=== PATIENT | male | born 1955 | race Caucasian/White ===

== ENCOUNTER 2016-06-30 21:34 | Emergency (ER) | payer MEDICARE, MEDICAID ==
[2016-07-01 02:39] LABS: ABSOLUTE EOSINOPHILS # (AUTO) 0.2 10^3/uL (0.0-0.6); ABSOLUTE LYMPHOCYTES (AUTO) 1.9 10^3/uL (0.5-4.7); ABSOLUTE MONOCYTES (AUTO) 0.5 10^3/uL (0.1-1.4); ABSOLUTE NEUT (AUTO) 6.5 10^3/uL (1.7-8.2); BASOPHILS % (AUTO) 0.3 % (0-2); EOSINOPHILS % (AUTO) 1.9 % (0-6); HEMOGLOBIN 13.6 g/dL (13.5-17.0); HGB HCT DIFFERENCE 0.8; LYMPHOCYTES % (AUTO) 20.6 % (13-45); MEAN CORPUSCULAR HEMOGLOBIN 31.1 pg (27.0-33.4); MEAN CORPUSCULAR HGB CONC 34.1 g/dL (32.0-36.0); MEAN CORPUSCULAR VOLUME 91 fl (80-97); RED BLOOD COUNT 4.39 10^6/uL (4.35-5.55); SEGMENTED NEUTROPHILS % (AUTO) 71.2 % (42-78); WHITE BLOOD COUNT 9.1 10^3/uL (4.0-10.5)
[2016-07-01 02:41] LABS: APPEARANCE,URINE CLEAR; BILIRUBIN,URINE NEGATIVE (NEGATIVE); GLUCOSE, URINE NEGATIVE (NEGATIVE); KETONES,URINE TRACE mg/dL (NEGATIVE); LEUKOCYTE ESTERASE,URINE NEGATIVE (NEGATIVE); NITRITE,URINE NEGATIVE (NEGATIVE); PROTEIN,URINE NEGATIVE (NEGATIVE); URINE SPECIFIC GRAVITY 1.013; UROBILINOGEN,URINE NEGATIVE mg/dL (<2.0)
[2016-07-01] MEDS ORDERED: MORPHINE SULFATE 10 MG/ML INJ IV ONE ×2 (02:41→05:31)
[2016-07-01] MEDS ORDERED: NORMAL SALINE 1000 ML 1,000 ML IV ONE (02:41)
[2016-07-01] MEDS ORDERED: ONDANSETRON HCL INJ/PF 4 MG/2 ML SDV IV ONE ×2 (02:41→05:32)
--- NOTE | 2016-07-01 02:43 | ER Document Report ---
ED GI/ - General Chief Complaint: Abdominal Pain Stated Complaint: LOWER ABDOMINAL PAIN Time seen by provider: 02:42 Notes: Patient is a 61-year-old male that comes emergency department with chief complaint of pain in his right lower abdomen that is worsening over the past 2 days, patient states he vomited once yesterday, he had a normal bowel movement earlier today, he denies dysuria, hematuria, flank pain, history of kidney stones. Patient has not had any abdominal surgeries. Patient had a colonoscopy about 5 years ago which just showed polyps which were removed. Past history of COPD, hypertension. TRAVEL OUTSIDE OF THE [place] IN LAST 30 DAYS: No - Related Data Allergies/Adverse Reactions: No Known Allergies Allergy (Verified 04/17/16 15:27) Past Medical History - General Information source: Patient - Social History Smoking Status: Former Smoker Chew tobacco use (# tins/day): No Frequency of alcohol use: None Drug Abuse: None Lives with: Family Family History: Arthritis, CAD, DM, Hyperlipidemia, Hypertension, Malignancy Patient has suicidal ideation: No Patient has homicidal ideation: No - Past Medical History Cardiac Medical History: Reports: Hx Hypercholesterolemia, Hx Hypertension Pulmonary Medical History: Reports: Hx Asthma, Hx COPD Endocrine Medical History: Reports: Hx Diabetes Mellitus Type 2 - ? states told may be borderline need to watch diet Renal/ Medical History: Denies: Hx Peritoneal Dialysis Musculoskeltal Medical History: Reports Hx Arthritis, Reports Hx Musculoskeletal Deformity, Reports Hx Musculoskeletal Trauma Psychiatric Medical History: Reports: Hx Anxiety, Hx Depression Traumatic Medical History: Reports: Hx Fractures Past Surgical History: Reports: Hx Orthopedic Surgery - rt hand and ankle - Immunizations Hx Diphtheria, Pertussis, Tetanus Vaccination: Yes Review of Systems - Review of Systems Constitutional: No symptoms reported EENT: No symptoms reported Cardiovascular: No symptoms reported Respiratory: No symptoms reported Gastrointestinal: See HPI Genitourinary: No symptoms reported Male Genitourinary: No symptoms reported Musculoskeletal: No symptoms reported Skin: No symptoms reported Hematologic/Lymphatic: No symptoms reported Neurological/Psychological: No symptoms reported Physical Exam - Vital signs Vitals: Temp Pulse Resp BP Pulse Ox 98.1 F 85 20 107/74 94 06/30/16 22:18 06/30/16 22:18 06/30/16 22:18 06/30/16 22:18 06/30/16 22:18 Interpretation: Normal - General General appearance: Appears well, Alert In distress: None - HEENT Head: Normocephalic, Atraumatic Eyes: Normal Conjunctiva: Normal Extraocular movements intact: Yes Eyelashes: Normal Pupils: PERRL Nasal: Normal Mouth/Lips: Normal Mucous membranes: Normal Pharynx: Normal Neck: Normal - Respiratory Respiratory status: No respiratory distress Chest status: Nontender Breath sounds: Normal Chest palpation: Normal - Cardiovascular Rhythm: Regular Heart sounds: Normal auscultation Murmur: No - Abdominal Inspection: Normal Distension: No distension Bowel sounds: Normal Tenderness: Tender - There is tenderness in the right lower abdomen, this is over McBurney's point and slightly around McBurney's point in addition, there is no guarding or rebound tenderness, abdomen is soft and benign and otherwise Organomegaly: No organomegaly - Back Back: Normal, Nontender. 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 Discussed with Dr. Dodd previously guidelines. CAT scan does not show any inflammation or acute surgical abnormality, however there is an area in the colon in the right lower abdomen in the patient's location of tenderness at the descending colon which is consistent with a mass concerning for malignancy. I discussed this with patient in detail, patient provided with a copy of his report and CD, referred to gastroenterology, patient states that he will follow-up immediately. Discussed return precautions , patient states understanding and agreement. - Vital Signs Vital signs: Temp Pulse Resp BP Pulse Ox 97.6 F 80 16 133/86 H 98 07/01/16 05:28 07/01/16 05:28 07/01/16 05:28 07/01/16 05:28 07/01/16 05:28 - Laboratory Result Diagrams: 07/01/16 02:25 07/01/16 02:25 Laboratory results interpreted by me: 07/01/16 07/01/16 02:20 02:25 AST 12 L Urine Ketones TRACE H Discharge - Discharge Clinical Impression: Lower abdominal pain Disposition: HOME, SELF-CARE Additional Instructions: Your CAT scan is concerning for a mass in the large intestine which could be cancer. This needs to be further examined with a scope procedure (colonoscopy) . Please call today for close follow-up with gastroenterology (see referrals listed). Take pain medication as prescribed if needed, take a stool softener as directed. Please return to emergency department for any concerning or worsening symptoms including fever, severe pain, etc. Prescriptions: Docusate Sodium [Colace 100 mg Capsule] 100 mg PO DAILY #30 capsule Oxycodone HCl/Acetaminophen [Percocet 5-325 mg Tablet] 1 - 2 tab PO Q4H PRN #20 tablet PRN Reason: Referrals: HAYES DIAZ MD [ACTIVE STAFF] - 07/01/16 AUSTIN VINCENT MD [ACTIVE STAFF] - 07/01/16 ALEX EMERSON MD [Primary Care Provider] - 07/01/16
[2016-07-01 02:56] LABS: ALANINE AMINOTRANSFERASE 22 U/L (21-72); ALBUMIN 3.9 g/dL (3.5-5.0); ALKALINE PHOSPHATASE 65 U/L (38-126); ANION GAP 11 (5-19); ASPARTATE AMINO TRANSFERASE 12 U/L (17-59); BILIRUBIN,TOTAL 0.5 mg/dL (0.2-1.3); BLOOD UREA NITROGEN 7 mg/dL (7-20); CALCIUM 9.4 mg/dL (8.4-10.2); CARBON DIOXIDE 28 mmol/L (22-30); CHLORIDE 102 mmol/L (98-107); CREATININE RESULT 0.81 mg/dL (0.52-1.25); GLUCOSE 103 mg/dL (75-110); LIPASE 70.1 U/L (23-300); POTASSIUM 4.2 mmol/L (3.6-5.0); SODIUM 141.3 mmol/L (137-145); TOTAL PROTEIN 6.3 g/dL (6.3-8.2)
[2016-07-01 05:30] VITALS: BP 133/86
== END 2016-07-01 06:27 | disposition home or self-care (01) ==
LOC: ER 21:34
DX: R10.31 Right lower quadrant pain (principal); R93.5 Abnormal findings on diagnostic imaging of other abdominal regions, including retroperitoneum; R11.10 Vomiting, unspecified; J44.9 Chronic obstructive pulmonary disease, unspecified; I10 Essential (primary) hypertension; J45.909 Unspecified asthma, uncomplicated; Z87.442 Personal history of urinary calculi; Z86.010 Personal history of colon polyps; Z87.891 Personal history of nicotine dependence
CPT/HCPCS: 96376; 99284; 96361; 96374; 96375; 36415; 83690; 85025; 80053; 81001; 74177; J2270; J2405; J7030

== ENCOUNTER 2016-07-04 09:21 | Day surgery (SDC) | payer MEDICARE, MEDICAID ==
[~2016-07-04 09:21] MED LIST: PROPOFOL INJ 200 MG/20 ML VIAL IV ONE
[2016-07-04 11:50] VITALS: BP 143/89
--- NOTE | 2016-07-04 13:24 | Operative Report ---
Operative Report DATE OF SURGERY: 07/04/16 Operative Report: The risks, benefits and alternatives of the procedure including risks of bleeding, perforation requiring surgery are explained to the patient in detail and informed consent is obtained. Patient is placed in a left, lateral decubital position. A timeout is called. Propofol medications administered. An Olympus videoscope was inserted into the patient's rectum. Scope was then gradually advanced all the way to the cecum. The cecum was identified by the usual anatomical landmarks including the cecal valve as well as the appendiceal office. Prep is good. Photo documentations obtained. The scope was then sequentially pulled back via the rest segments of the colon including the ascending colon, hepatic flexure, transverse colon, splenic flexure, descending colon and finally into the rectosigmoid portions of the colon. Retroflexion maneuvers performed. PREOPERATIVE DIAGNOSIS: Abnormal CT scan showing possible lesion in the ascending colon POSTOPERATIVE DIAGNOSIS: Ascending colon ulcerated area and lesion rest suggestive of adenocarcinoma biopsies obtained. Because of its location which is right close to the cecum he'll need surgery with possible right hemicolectomy OPERATION: Colonoscopy with biopsy SURGEON: HAYES DIAZ ANESTHESIA: LMAC TISSUE REMOVED OR ALTERED: Right colon specimens obtained COMPLICATIONS: None. ESTIMATED BLOOD LOSS: none. INTRAOPERATIVE FINDINGS: Ulcerated lesion noted in the area of the ascending colon. No other masses, AVMs, diverticulosis noted PROCEDURE: Patient tolerated the procedure well. No immediate postprocedure complications are noted. Patient is discharged in good condition. Discharge date 07/04/2016. Discharge diet: Regular. Discharge activity: Regular. He will need surgical referral for right hemicolectomy We'll await on biopsies Patient is instructed to call the office or proceed to the emergency room should there be any further problems or questions.
== END 2016-07-04 11:49 | disposition home or self-care (01) ==
LOC: END 09:21
PROVIDERS: ATTEND Internal Medicine Gastroenterology
PROC: 0DBK8ZX Excision of Ascending Colon, Via Natural or Artificial Opening Endoscopic, Diagnostic (ICD-10-PCS; principal; 2016-07-04 12:00)
DX: K52.9 Noninfective gastroenteritis and colitis, unspecified (principal); I10 Essential (primary) hypertension; Z86.010 Personal history of colon polyps
CPT/HCPCS: 45380; 88305 ×2; J2704; 810

== ENCOUNTER 2016-08-03 05:18 | Inpatient (IN) | payer MEDICARE, MEDICAID ==
[2016-07-27 10:46] LABS: HEMATOCRIT 45.1 % (37.9-51.0); HEMOGLOBIN 14.9 g/dL (13.5-17.0); HGB HCT DIFFERENCE -0.4; MEAN CORPUSCULAR HEMOGLOBIN 30.1 pg (27.0-33.4); MEAN CORPUSCULAR HGB CONC 32.9 g/dL (32.0-36.0); MEAN CORPUSCULAR VOLUME 91 fl (80-97); RED BLOOD COUNT 4.94 10^6/uL (4.35-5.55); RED CELL DISTRIBUTION WIDTH 13.5 % (11.5-14.0); WHITE BLOOD COUNT 5.3 10^3/uL (4.0-10.5)
[2016-07-27 10:52] LABS: PROTHROMBIN TIME 12.3 SEC (11.4-15.4)
[2016-07-27 11:07] LABS: ANION GAP 12 (5-19); BLOOD UREA NITROGEN 11 mg/dL (7-20); CALCIUM 10.2 mg/dL (8.4-10.2); CARBON DIOXIDE 30 mmol/L (22-30); CHLORIDE 103 mmol/L (98-107); CREATININE RESULT 0.65 mg/dL (0.52-1.25); GLUCOSE 92 mg/dL (75-110); POTASSIUM 4.5 mmol/L (3.6-5.0); SODIUM 144.9 mmol/L (137-145)
--- NOTE | 2016-07-27 13:47 | EKG REPORT ---
SEVERITY:- BORDERLINE ECG - ECTOPIC ATRIAL RHYTHM SHORT AR INTERVAL, ACCELERATED AV CONDUCTION : Confirmed by: Darell Desai MD 27-Jul-2016 13:47:05
[~2016-08-03 05:18] MED LIST changes: +DEXTROSE 5%-LACTATED RINGERS 1,000 ML IV PRN; +LACTATED RINGERS 1000 ML IV PRN; +LIDOCAINE 0.5% INJ-PF (5 MG/ML) 50 ML SDV SUBCUT PRN; -PROPOFOL INJ 200 MG/20 ML VIAL IV ONE
[2016-08-03] MEDS ORDERED: ALBUTEROL SULFATE 0.083% NEB 2.5 MG/3 ML AMPUL NEB ONE (05:45)
[2016-08-03 06:23] LABS: POTASSIUM 4.2 mmol/L (3.6-5.0)
[2016-08-03] MEDS ORDERED: BUPIVACAINE INJ/PF LIPOSOME/PF 266 MG/20 ML SDV ONE (06:31)
[2016-08-03] MEDS ORDERED: BUPIVACAINE HCL 0.25 % INJ/PF (2.5 MG/1 ML) 30 ML VIAL ONE (06:31)
[2016-08-03] MEDS ORDERED: MIDAZOLAM 2 MG/2 ML INJ ONE (06:56)
[2016-08-03] MEDS ORDERED: HYDROMORPHONE HCL INJ/PF 2 MG/ML AMPULE ONE (06:56)
[2016-08-03] MEDS ORDERED: FENTANYL CITRATE INJ/PF 250 MCG/5 ML AMPULE ONE (06:56)
[2016-08-03] MEDS ORDERED: EPHEDRINE SULFATE INJ 50 MG/1 ML AMPULE ONE (06:57)
[2016-08-03] MEDS ORDERED: PROPOFOL INJ 200 MG/20 ML VIAL IV ONE (06:57)
[2016-08-03] MEDS ORDERED: ACETAMINOPHEN 100 ML IV ONE (06:57)
[2016-08-03] MEDS: AMPICILLIN SODIUM/SULBACTAM NA 3 GM in NORMAL SALINE 100 ML IV PRN ×2 (07:30→15:46)
[2016-08-03] MEDS ORDERED: DIPHENHYDRAMINE HCL 50 MG/ML VIAL IV PRN (09:38)
[2016-08-03] MEDS ORDERED: PROMETHAZINE HCL INJ 25 MG/1 ML VIAL IV PRN ×2 (09:38)
[2016-08-03] MEDS ORDERED: MEPERIDINE HCL/PF INJ 25 MG/1 ML DISP.SYRIN IV PRN (09:38)
[2016-08-03] MEDS ORDERED: MORPHINE SULFATE 10 MG/ML INJ IV PRN (09:38)
[2016-08-03] MEDS ORDERED: FENTANYL CITRATE INJ/PF 100 MCG/2 ML AMPUL IV PRN ×3 (09:38)
[2016-08-03] MEDS ORDERED: OXYCODONE-ACETAMINOPHEN 5-325 MG TABLET PO PRN ×2 (09:38)
[2016-08-03] MEDS: FENTANYL CITRATE INJ/PF 100 MCG/2 ML AMPUL ONE ×2 (11:12→11:17)
--- NOTE | 2016-08-03 11:17 | Operative Report ---
Operative Report DATE OF SURGERY: 08/03/16 PREOPERATIVE DIAGNOSIS: Ascending colon mass, rule out malignancy POSTOPERATIVE DIAGNOSIS: Same OPERATION: 1. Laparoscopic lysis of adhesions. 2. Laparoscopic mobilization of hepatic flexure. 3. Right laparoscopic hemicolectomy with primary stapled ileo- transverse colon anastomosis SURGEON: WALTER CHAU ASSISTANT PROFESSOR OF FORESTRY: CHELSEY WORKMAN ANESTHESIA: GA TISSUE REMOVED OR ALTERED: Right colon with attendant mesentery COMPLICATIONS: None ESTIMATED BLOOD LOSS: 100 mL INTRAOPERATIVE FINDINGS: See below PROCEDURE: Patient was seen in the preoperative holding area where the operative plan was discussed. He was then taken to the operating room where general anesthesia was induced. Abdomen was exposed hair clipped Mota catheter inserted uneventfully and the abdomen prepped and draped in a sterile fashion. Instrumentation was set up for laparoscopic right hemicolectomy. The patient's arms and legs were talked in the supine position. Surgical plan and surgical timeout were reviewed. Skin was anesthetized with quarter percent Marcaine. A supraumbilical vertical incision was made with a knife varies needle inserted peritoneal cavity and pneumoperitoneum was established. Varies needle was removed and a 5 mm port was inserted and a 5 mm flexible viewing scope was inserted. Under direct visualization 2 additional 5 mm ports were inserted one in the left lower quadrant and a third port in the left mid to upper quadrant. Visualization of the peritoneal cavity including the peritoneum, stomach, liver , small bowel revealed no evidence of metastatic disease. Of note there were dense adhesions between the right colon just distal to the cecum and the lateral pelvic and abdominal wall, as well as adhesions between the terminal ileum and the right side of the sacral promontory. We used the 37 cm LigaSure energy device to take down the pericolonic adhesions. The adhesions down in the pelvis between the terminal ileum and the pelvic sidewall were taken down under excellent visualization primarily using sharp and gentle traction dissection. Once completed, the terminal ileum was in a more anatomic position , freed up from the attachments previously described above. We used this opportunity to take down the white line of Toldt freeing up the cecum and the ascending colon going from proximal to distal. There was no evidence of tumor involvement in the abdominal wall or descending colon. There was no discrete mass effect. The level dissection was taken all the way up to the proximal hepatic flexure. At this point we changed position of the patient putting him in level configuration the head down slightly and opened up the ileo-colic mesentery. We now began the medial dissection of the procedure, getting into the appropriate plane mobilizing the the avascular tissue all the way up to the visualization of the duodenum. The duodenum was swept dorsally and the mesentery elevated ventrally. This afforded us excellent visualization of the duodenum about the dissection. We now changed position of the patient to optimize exposure to the gastrocolic omentum. This ligament was fused and took a fair amount of energy device dissection to open up into the appropriate plane. We the transverse colon From the gastroduodenal area and took the level of the dissection all the way to the hepatic flexure. Graspers were placed on the colon and the colon was retracted caudad to completely mobilize the hepatic flexure all using the ligature device. We now had the duodenum exposed, including the second portion. At this point we checked the right colon and it seemed to be completely freed up and suitable for evisceration. We removed the laparoscopic instruments anesthetize the midline skin above the supraumbilical port with quarter percent Marcaine and extended our incision approximately 6 cm cephalad. The fascia was divided and wound protector installed into position. The right colon was easily eviscerated without tension. Bowl or palpable pathology of the right colon. We elected to proceed with the planned operation specifically the right colectomy. The transverse colon was from the residual omentum and a suitable site for transection was chosen including right branch of the middle colic vessels. It is worse colon was divided with the PAGE 55 stapler. Suitable site for transection of the terminal ileum was chosen approximately 8 cm proximal to the ileocecal junction. The terminal ileum was divided with a single firing blue load of the 55 PAGE stapler. The right mesocolon was then taken down between clamps and 0 Vicryl and suture ligature ties. There was no evidence of mesenteric adenopathy. The ligations were taken moderately high but not to the level of the inferior mesenteric vein. Right colon was taken off the field and inspected by Dr. Kylie Zheng, opened longitudinally and found to have some ulcerated areas just distal to the cecum, but no endoluminal mass per se. Specimen was sent to pathology for permanent analysis. Now completed the ileo-to transverse colon anastomosis using a single firing of the PAGE 55 stapler. The common openings of the ileum and transverse colon were closed with a single firing of the TA 60 stapler. The anastomosis was in excellent condition with no tension, no bleeding from the staple line and appeared patent by palpation. We felt this portion of the operation was complete. We allowed the anastomosis to retract back into the abdominal cavity. The mesentery was not closed. We placed a On the wound protector and reestablished pneumoperitoneum and checked the viscera laparoscopically. There was no evidence of mechanical bleeding seen. Little pockets of old blood were washed out. We inspected the anastomosis and it appeared to be in good shape. There did not appear to be inking of the anastomosis nor rotation. A photograph was taken. Sponge counts are correct. All ports and devices were removed from the peritoneal cavity. Nasogastric tube functioned satisfactorily but could not be seen laparoscopically . It was felt to be in satisfactory position. Midline wound closed with 2 running #1 PDS sutures and all other wounds closed with roberto. 20 mL of full strength exparel was injected into the subcutaneous tissue. Patient tolerated procedure well and extubated to recovery in stable condition. The physician optometric assistant, Ms. Workman, provided assistance during this case by: Assisting and port insertion, retracting tissue, instillation of local anesthesia and closure of skin incisions.
[2016-08-03] MEDS: MORPHINE SULFATE 10 MG/ML INJ IV PRN ×2 (12:44→17:31)
[2016-08-03] MEDS ORDERED: PHENYLEPHRINE HCL INJ/PF 10 MG/1 ML SDV ONE (12:52)
[2016-08-03] MEDS ORDERED: DEXAMETHASONE SOD PHOSPHATE INJ 4 MG/1 ML VIAL ONE (12:52)
[2016-08-03] MEDS ORDERED: ONDANSETRON HCL INJ/PF 4 MG/2 ML SDV ONE (12:52)
[2016-08-03] MEDS ORDERED: SUCCINYLCHOLINE CHLORIDE INJ 200 MG/10 ML VIAL ONE (12:52)
[2016-08-03] MEDS ORDERED: NEOSTIGMINE METHYLSULFATE 10 MG/10 ML VIAL ONE (12:52)
[2016-08-03] MEDS ORDERED: GLYCOPYRROLATE INJ 0.4 MG/2 ML VIAL ONE (12:52)
[2016-08-03] MEDS ORDERED: ROCURONIUM BROMIDE INJ 50 MG/5 ML VIAL IV ONE (12:52)
[2016-08-03] MEDS: AMPICILLIN SODIUM/SULBACTAM NA 3 GM in NORMAL SALINE 100 ML IV SCH ×2 (14:30→21:18)
[2016-08-03] MEDS: KETOROLAC TROMETHAMINE INJ/PF 30 MG/1 ML SDV IV PRN ×2 (14:43→21:18)
[2016-08-04] MEDS: MORPHINE SULFATE 10 MG/ML INJ IV PRN ×2 (01:49→09:00)
[2016-08-04] MEDS: ALBUTEROL SULFATE 0.083% NEB 2.5 MG/3 ML AMPUL NEB PRN ×2 (01:49→14:00)
[2016-08-04] MEDS: DEXTROSE 5%-LACTATED RINGERS 1,000 ML IV PRN (01:49)
[2016-08-04] MEDS: KETOROLAC TROMETHAMINE INJ/PF 30 MG/1 ML SDV IV PRN ×2 (05:35→14:06)
[2016-08-04] MEDS: AMPICILLIN SODIUM/SULBACTAM NA 3 GM in NORMAL SALINE 100 ML IV SCH (05:35)
--- NOTE | 2016-08-04 12:20 | PDOC PROGRESS REPORT ---
Subjective Progress Note for:: 08/04/16 Subjective:: Patient had an uneventful night. Nasogastric tube removed no nausea or vomiting. Mota catheter removed this morning, no voiding yet. Physical Exam Vital Signs: Temp Pulse Resp BP Pulse Ox 98.1 F 79 16 130/88 H 96 08/04/16 11:15 08/04/16 11:15 08/04/16 11:15 08/04/16 11:15 08/04/16 11:15 Intake & Output 08/03/16 08/04/16 08/05/16 06:59 06:59 06:59 Intake Total 0 6500 Output Total 1450 Balance 0 5050 Weight 84.3 kg General appearance: PRESENT: no acute distress GI/Abdominal exam: PRESENT: other - Binder in position. No abdominal distention. Minimal tenderness. Results Laboratory Results: 07/27/16 09:46 08/03/16 05:57 Assessment & Plan - Diagnosis (1) S/P right colectomy Is this a current diagnosis for this admission?: YesPlan: Patient is one day status post right hemicolectomy, laparoscopic, with primary stapled anastomosis. He is doing well, awaiting return of bowel function. Catheter discontinued. Start sips of clear liquids, encourage by mouth pain medication, and allowed to take home medications.
[2016-08-04] MEDS: OXYCODONE-ACETAMINOPHEN 5-325 MG TABLET PO PRN (17:52)
[2016-08-05] MEDS: ONDANSETRON HCL INJ/PF 4 MG/2 ML SDV IV PRN ×3 (00:21→21:10)
[2016-08-05] MEDS: OXYCODONE-ACETAMINOPHEN 5-325 MG TABLET PO PRN ×5 (00:21→21:10)
[2016-08-05] MEDS: ALBUTEROL SULFATE 0.083% NEB 2.5 MG/3 ML AMPUL NEB PRN ×2 (06:13→18:41)
--- NOTE | 2016-08-05 17:57 | PDOC PROGRESS REPORT ---
Subjective Progress Note for:: 08/05/16 Subjective:: Patient is postop day 2 status post right hemicolectomy, laparoscopic. He is voiding without difficulty; he had 1 episode of nausea last night. He has not passed flatus. He has been taking clear liquids Physical Exam Vital Signs: Temp Pulse Resp BP Pulse Ox 97.9 F 85 18 152/94 H 96 08/05/16 15:04 08/05/16 15:04 08/05/16 15:04 08/05/16 15:04 08/05/16 15:04 Intake & Output 08/04/16 08/05/16 08/06/16 06:59 06:59 06:59 Intake Total 6500 4312 1565 Output Total 1450 35 Balance 5050 4277 1565 Weight 84.3 kg 84.4 kg General appearance: PRESENT: no acute distress GI/Abdominal exam: PRESENT: other - All incisions healing satisfactorily. Mild to moderate abdominal distention, no tenderness. Results Laboratory Results: 07/27/16 09:46 08/03/16 05:57 Assessment & Plan - Diagnosis (1) S/P right colectomy Is this a current diagnosis for this admission?: Yes (2) S/P right colectomy Is this a current diagnosis for this admission?: YesPlan: 1. Final path showing ulceration only; no evidence of malignant; this was discussed with patient and family. 2. Will keep patient on clear liquids until ileus resolves. 3. Get patient up into the shower.
[2016-08-05] MEDS: DEXTROSE 5%-LACTATED RINGERS 1,000 ML IV PRN (21:11)
[2016-08-06] MEDS: ALBUTEROL SULFATE 0.083% NEB 2.5 MG/3 ML AMPUL NEB PRN ×4 (01:42→20:08)
[2016-08-06] MEDS: OXYCODONE-ACETAMINOPHEN 5-325 MG TABLET PO PRN (02:28)
[2016-08-06] MEDS: ONDANSETRON HCL INJ/PF 4 MG/2 ML SDV IV PRN (08:24)
[2016-08-06] MEDS: MORPHINE SULFATE 10 MG/ML INJ IV PRN (08:24)
[2016-08-06] MEDS: DEXTROSE 5%-LACTATED RINGERS 1,000 ML IV PRN ×2 (08:45→19:31)
[2016-08-06] MEDS: HYDROCHLOROTHIAZIDE 12.5 MG CAPSULE PO SCH (11:32)
[2016-08-06] MEDS: LISINOPRIL 10 MG TABLET PO SCH (11:33)
[2016-08-06] MEDS: KETOROLAC TROMETHAMINE INJ/PF 30 MG/1 ML SDV IV PRN (16:16)
--- NOTE | 2016-08-06 16:17 | PDOC CONSULTATION ---
Consultation Consult Date: 08/06/16 Attending physician:: WALTER NORIEGA Consult reason:: COPD History of Present Illness Admission Date/PCP: 08/03/16 05:18 ALEX EMERSON MD History of Present Illness: CLINT AMATO JR is a 61 year old male with a history of COPD with recent hospitalization in April who underwent right hemicolectomy on Monday for colonic mass. Patient has not had any flatus since surgery. Patient denies fevers or chills. Patient reports he's had in the last 24 hours development of a cough productive of brown sputum. He also reports that he has had some vomiting with she was worried had a contained fecal material. Patient is just received an albuterol treatment. He has been ambulating. Past Medical History Cardiac Medical History: Reports: Hyperlipidema, Hypertension Denies: Atrial Fibrillation, Congestive Heart Failure, Coronary Artery Disease, Myocardial Infarction, Peripheral Vascular Disease, Pulmonary Embolism , Heart Murmur Pulmonary Medical History: Reports: Asthma, Bronchitis, Chronic Obstructive Pulmonary Disease (COPD) Denies: Pneumonia, Respiratory Failure, Sleep Apnea, Tuberculosis Neurological Medical History: Denies: Seizures Endocrine Medical History: Reports: Diabetes Mellitus Type 2 - ? states told may be borderline need to watch diet Malignancy Medical History: Denies: Lung Cancer GI Medical History: Denies: Crohn's Disease, Gastroesophageal Reflux Disease, Hiatal Hernia Musculoskeltal Medical History: Reports: Arthritis - hands Denies: Fibromyalgia Psychiatric Medical History: Reports: Depression Hematology: Denies: Anemia Past Surgical History Past Surgical History: Reports: Orthopedic Surgery - rt hand and ankle, Other - Colectomy Denies: Appendectomy, Cholecystectomy, Colostomy, Coronary Artery Bypass Graft, Gastric Bypass Surgery, Herniorrhaphy, Pacemaker, Tonsillectomy Social History Smoking Status: Former Smoker Frequency of Alcohol Use: Occasional - Reports he has stopped Hx Recreational Drug Use: No Drugs: Marijuana Hx Prescription Drug Abuse: No - Advance Directive Resuscitation Status: Full Code Surrogate healthcare decision maker:: Twyla Coombs , daughter Family History Family History: Arthritis, CAD, DM, Hyperlipidemia, Hypertension, Malignancy Parental Family History Reviewed: Yes Children Family History Reviewed: Yes Sibling(s) Family History Reviewed.: Yes Medication/Allergy Home Medications: Lisinopril/Hydrochlorothiazide [Lisinopril-Hctz 20-12.5 mg Tab] 1 each PO DAILY #30 tablet 05/18/15 Simvastatin 10 mg PO DAILY #30 tablet 05/18/15 Albuterol Sulfate [Ventolin Hfa] 1 puff IN Q4H PRN #1 hfa.aer.ad 04/18/16 Oxycodone HCl/Acetaminophen [Percocet 5-325 mg Tablet] 1 - 2 tab PO Q4H PRN #20 tablet 07/01/16 Allergies/Adverse Reactions: No Known Allergies Allergy (Verified 07/27/16 09:10) Review of Systems Constitutional: ABSENT: chills, fever(s), headache(s), weight gain, weight loss Eyes: ABSENT: visual disturbances Ears: ABSENT: hearing changes Cardiovascular: ABSENT: chest pain, dyspnea on exertion, edema, orthropnea, palpitations Respiratory: PRESENT: cough, dyspnea, sputum. ABSENT: hemoptysis Gastrointestinal: PRESENT: abdominal pain, bloating, nausea, vomiting. ABSENT: constipation, diarrhea, hematemesis, hematochezia Genitourinary: ABSENT: dysuria, hematuria Musculoskeletal: ABSENT: joint swelling Integumentary: ABSENT: rash, wounds Neurological: ABSENT: abnormal gait, abnormal speech, confusion, dizziness, focal weakness, syncope Psychiatric: ABSENT: anxiety, depression, homidical ideation, suicidal ideation Endocrine: ABSENT: cold intolerance, heat intolerance, polydipsia, polyuria Hematologic/Lymphatic: ABSENT: easy bleeding, easy bruising Physical Exam Vital Signs: Temp Pulse Resp BP Pulse Ox 97.9 F 84 16 162/87 H 95 08/06/16 15:19 08/06/16 15:20 08/06/16 15:20 08/06/16 15:19 08/06/16 15:20 Intake & Output 08/05/16 08/06/16 08/07/16 06:59 06:59 06:59 Intake Total 4312 3524 960 Output Total 35 Balance 4277 3524 960 Weight 84.4 kg 84.5 kg General appearance: PRESENT: mild distress, well-developed, well-nourished Head exam: PRESENT: atraumatic, normocephalic Eye exam: PRESENT: conjunctiva pink, EOMI, PERRLA. ABSENT: scleral icterus Ear exam: PRESENT: normal external ear exam Mouth exam: PRESENT: moist, tongue midline Neck exam: ABSENT: JVD, lymphadenopathy, thyromegaly, tracheal deviation Respiratory exam: PRESENT: tachypnea, wheezes. ABSENT: crackles, rales, rhonchi , unlabored Cardiovascular exam: PRESENT: RRR, +S1, +S2. ABSENT: diastolic murmur, gallop, rubs, systolic murmur Pulses: PRESENT: normal dorsalis pedis pul Vascular exam: PRESENT: normal capillary refill GI/Abdominal exam: PRESENT: diminished bowel sounds, hernia, soft, tenderness - A long incision, other - Midline incision well healing,. ABSENT: distended, guarding, mass, normal bowel sounds, organolmegaly, rebound Rectal exam: PRESENT: deferred Extremities exam: PRESENT: full ROM. ABSENT: calf tenderness, clubbing, pedal edema Neurological exam: PRESENT: alert, awake, oriented to person, oriented to place , oriented to time, oriented to situation, CN II-XII grossly intact. ABSENT: motor sensory deficit Psychiatric exam: PRESENT: anxious, normal mood. ABSENT: homicidal ideation, suicidal ideation Skin exam: PRESENT: dry, intact, warm. ABSENT: cyanosis, rash Results Laboratory Results: 07/27/16 09:46 08/03/16 05:57 Assessment & Plan - Diagnosis (1) COPD exacerbation Is this a current diagnosis for this admission?: YesPlan: We'll obtain a chest x-ray. Obtain CBC and BMP. Initiate patient on Solu- Medrol 80 mg IV every 8. DuoNeb's every 4hours while awake. Encourage incentive spirometry and flutter valve. Good pain management for encouraging cough. (2) S/P right colectomy Is this a current diagnosis for this admission?: YesPlan: Patient is postoperative day #4 for hemicolectomy. Defer all intra-abdominal processes and its related complications to the primary surgical team. (3) Anxiety Is this a current diagnosis for this admission?: YesPlan: Begin patient on Ativan 0.5 mg IV every 6 when necessary (4) Hypertension Qualifiers: Hypertension type: essential hypertension Qualified Code(s): I10 - Essential (primary) hypertension Is this a current diagnosis for this admission?: YesPlan: We'll place when necessary hydralazine. - Time Time Spent: 50 to 70 Minutes Medications reviewed and adjusted accordingly: Yes
[2016-08-06 16:28] LABS: HEMATOCRIT 39.2 % (37.9-51.0); HEMOGLOBIN 13.2 g/dL (13.5-17.0); HGB HCT DIFFERENCE 0.4; MEAN CORPUSCULAR HEMOGLOBIN 30.6 pg (27.0-33.4); MEAN CORPUSCULAR HGB CONC 33.7 g/dL (32.0-36.0); MEAN CORPUSCULAR VOLUME 91 fl (80-97); RED BLOOD COUNT 4.33 10^6/uL (4.35-5.55); RED CELL DISTRIBUTION WIDTH 13.2 % (11.5-14.0); WHITE BLOOD COUNT 6.8 10^3/uL (4.0-10.5)
[2016-08-06] MEDS ORDERED: METHYLPREDNISOLONE INJ 40 MG/1 ML SDV IV ONE (16:30)
[2016-08-06] MEDS ORDERED: METOCLOPRAMIDE HCL INJ/PF 10 MG/2 ML SDV IV ONE (16:30)
[2016-08-06 16:47] LABS: ANION GAP 11 (5-19); BLOOD UREA NITROGEN 6 mg/dL (7-20); CALCIUM 9.3 mg/dL (8.4-10.2); CARBON DIOXIDE 30 mmol/L (22-30); CHLORIDE 99 mmol/L (98-107); CREATININE RESULT 0.64 mg/dL (0.52-1.25); GLUCOSE 126 mg/dL (75-110); POTASSIUM 3.6 mmol/L (3.6-5.0); SODIUM 139.9 mmol/L (137-145)
[2016-08-06] MEDS: LORAZEPAM INJ 2 MG/1 ML VIAL IV PRN (18:34)
[2016-08-06] MEDS: BUDESONIDE NEB 0.5 MG/2 ML AMPUL NEB SCH (20:08)
--- NOTE | 2016-08-06 20:52 | PDOC PROGRESS REPORT ---
Physical Exam Vital Signs: Temp Pulse Resp BP Pulse Ox 97.4 F 98 18 142/83 H 94 08/06/16 19:32 08/06/16 19:32 08/06/16 19:32 08/06/16 19:32 08/06/16 19:32 Intake & Output 08/05/16 08/06/16 08/07/16 06:59 06:59 06:59 Intake Total 4312 3524 2160 Output Total 35 Balance 4277 3524 2160 Weight 84.4 kg 84.5 kg Results Laboratory Results: 08/06/16 16:20 08/06/16 16:20 08/06/16 08/06/16 16:20 16:20 WBC 6.8 RBC 4.33 L Hgb 13.2 L Hct 39.2 MCV 91 MCH 30.6 MCHC 33.7 RDW 13.2 Plt Count 152 Sodium 139.9 Potassium 3.6 Chloride 99 Carbon Dioxide 30 Anion Gap 11 BUN 6 L Creatinine 0.64 Est GFR ( Amer) > 60 Est GFR (Non-Af Amer) > 60 Glucose 126 H Calcium 9.3 Impressions: Acute Abdomen Series 08/06/16 00:00 IMPRESSION: 1. Intra-abdominal free air noted of the right hemidiaphragm presumed to be related to recent surgical procedure. There are numerous dilated loops of bowel seen throughout the abdomen presumed to represent ileus versus obstruction. Postsurgical changes seen of the abdomen. Chest X-Ray 08/06/16 00:00 IMPRESSION: COPD. No focal infiltrate. Intra-abdominal free air presumed to be related to recent surgery. Multiple dilated loops of bowel likely representing ileus versus obstruction. Assessment & Plan - Diagnosis (1) Ileus, postoperative Is this a current diagnosis for this admission?: Yes - Plan Summary Plan Summary: Abdominal xrays showed ileus. Will keep NPO and recheck lytes
[2016-08-06] MEDS: METHYLPREDNISOLONE INJ 40 MG/1 ML SDV IV SCH (21:49)
[2016-08-06] MEDS: METOCLOPRAMIDE HCL INJ/PF 10 MG/2 ML SDV IV SCH (21:49)
[2016-08-06] MEDS: FAMOTIDINE INJ/PF 20 MG/2 ML SDV IV SCH (21:49)
[2016-08-07] MEDS: METOCLOPRAMIDE HCL INJ/PF 10 MG/2 ML SDV IV SCH ×4 (03:01→21:42)
[2016-08-07] MEDS: METHYLPREDNISOLONE INJ 40 MG/1 ML SDV IV SCH ×3 (06:07→21:42)
--- NOTE | 2016-08-07 07:53 | PDOC PROGRESS REPORT ---
Subjective Progress Note for:: 08/07/16 Subjective:: Patient is feeling better, denies pain, denies nausea or vomiting. Had several episodes of flatus. Physical Exam Vital Signs: Temp Pulse Resp BP Pulse Ox 97.6 F 93 19 151/94 H 93 08/07/16 07:17 08/07/16 07:17 08/07/16 07:17 08/07/16 07:17 08/07/16 07:17 Intake & Output 08/06/16 08/07/16 08/08/16 06:59 06:59 06:59 Intake Total 3524 4581 Balance 3524 4581 Weight 84.5 kg General appearance: PRESENT: no acute distress GI/Abdominal exam: PRESENT: other - Abdomen less distended, soft, no peritoneal signs. Wounds healing satisfactorily. Results Laboratory Results: 08/06/16 16:20 08/06/16 16:20 08/06/16 08/06/16 16:20 16:20 WBC 6.8 RBC 4.33 L Hgb 13.2 L Hct 39.2 MCV 91 MCH 30.6 MCHC 33.7 RDW 13.2 Plt Count 152 Sodium 139.9 Potassium 3.6 Chloride 99 Carbon Dioxide 30 Anion Gap 11 BUN 6 L Creatinine 0.64 Est GFR ( Amer) > 60 Est GFR (Non-Af Amer) > 60 Glucose 126 H Calcium 9.3 Impressions: Acute Abdomen Series 08/06/16 00:00 IMPRESSION: 1. Intra-abdominal free air noted of the right hemidiaphragm presumed to be related to recent surgical procedure. There are numerous dilated loops of bowel seen throughout the abdomen presumed to represent ileus versus obstruction. Postsurgical changes seen of the abdomen. Chest X-Ray 08/06/16 00:00 IMPRESSION: COPD. No focal infiltrate. Intra-abdominal free air presumed to be related to recent surgery. Multiple dilated loops of bowel likely representing ileus versus obstruction. Assessment & Plan - Diagnosis (1) S/P right colectomy Is this a current diagnosis for this admission?: Yes (2) S/P right colectomy Is this a current diagnosis for this admission?: YesPlan: 1. Postoperative day 4 that is post laparoscopic right hemicolectomy for ulcerated lesion of the right colon. Patient now passing flatus and voiding . Laboratory profile l yesterday unremarkable. Abdominal films consistent with ileus pattern. 2. Plan today is continued ambulating, consider advancing diet later today.
[2016-08-07] MEDS: BUDESONIDE NEB 0.5 MG/2 ML AMPUL NEB SCH ×2 (08:53→20:49)
[2016-08-07] MEDS: ALBUTEROL SULFATE 0.083% NEB 2.5 MG/3 ML AMPUL NEB PRN ×2 (08:53→20:49)
[2016-08-07] MEDS: HYDROCHLOROTHIAZIDE 12.5 MG CAPSULE PO SCH (10:53)
[2016-08-07] MEDS: FAMOTIDINE INJ/PF 20 MG/2 ML SDV IV SCH ×2 (10:53→21:42)
[2016-08-07] MEDS: POTASSI CL 20 MEQ/50 ML RIDER 50 ML IV SCH ×3 (10:55→15:43)
[2016-08-07] MEDS: DOCUSATE SODIUM 100 MG CAPSULE PO SCH ×2 (10:56→18:00)
[2016-08-07] MEDS: DEXTROSE 5%-LACTATED RINGERS 1,000 ML IV PRN (10:57)
[2016-08-07] MEDS: LORAZEPAM INJ 2 MG/1 ML VIAL IV PRN ×2 (11:39→19:10)
[2016-08-07] MEDS: LISINOPRIL 10 MG TABLET PO SCH (13:02)
[2016-08-07] MEDS ORDERED: POTASSIUM CHLORIDE 20 MEQ/50 ML RTU IV ONE (15:00)
--- NOTE | 2016-08-07 15:01 | PDOC PROGRESS REPORT ---
Subjective Progress Note for:: 08/07/16 Subjective:: Patient seen earlier this morning on morning rounds. Patient denies chest pain, shortness of breath, abdominal pain, nausea, vomiting , fevers, chills, diarrhea, headache, new onset weakness. Patient reports he's been passing flatus. Patient has been inability without difficulty. He reports his shortness of breath is greatly improved. Physical Exam Vital Signs: Temp Pulse Resp BP Pulse Ox 97.8 F 98 20 170/81 H 96 08/07/16 11:30 08/07/16 11:30 08/07/16 11:30 08/07/16 11:30 08/07/16 11:30 Intake & Output 08/06/16 08/07/16 08/08/16 06:59 06:59 06:59 Intake Total 3524 4581 990 Balance 3524 4581 990 Weight 84.5 kg Exam: General: Awake alert and oriented x3, no acute respiratory distress HEENT: AT/NC, PERRL, EOMI, oropharynx is moist, pink, no scleral icterus, no conjunctival injection Neck: No JVD, trachea midline Chest: Clear to auscultation bilaterally, no wheezes rhonchi or rales CV: Regular rate and rhythm, normal S1 and S2, no murmur, rub, or gallop Abdomen: Soft, nontender to palpation, nondistended, active bowel sounds; no rebound, rigidity, or guarding; well-healing abdominal incision Extremities: No cyanosis, clubbing or edema Neuro: Cranial nerves II through XII are grossly intact without focal deficits; awake alert and oriented x3 Psych: Normal mood and affect Results Laboratory Results: 08/06/16 16:20 08/06/16 16:20 08/06/16 08/06/16 08/07/16 16:20 16:20 11:05 WBC 6.8 RBC 4.33 L Hgb 13.2 L Hct 39.2 MCV 91 MCH 30.6 MCHC 33.7 RDW 13.2 Plt Count 152 Sodium 139.9 Potassium 3.6 Chloride 99 Carbon Dioxide 30 Anion Gap 11 BUN 6 L Creatinine 0.64 Est GFR ( Amer) > 60 Est GFR (Non-Af Amer) > 60 Glucose 126 H Calcium 9.3 Magnesium 1.4 L Impressions: Acute Abdomen Series 08/06/16 00:00 IMPRESSION: 1. Intra-abdominal free air noted of the right hemidiaphragm presumed to be related to recent surgical procedure. There are numerous dilated loops of bowel seen throughout the abdomen presumed to represent ileus versus obstruction. Postsurgical changes seen of the abdomen. Chest X-Ray 08/06/16 00:00 IMPRESSION: COPD. No focal infiltrate. Intra-abdominal free air presumed to be related to recent surgery. Multiple dilated loops of bowel likely representing ileus versus obstruction. Assessment & Plan - Diagnosis (1) COPD exacerbation Is this a current diagnosis for this admission?: YesPlan: Chest x-ray revealed no infiltrate. Patient on Solu-Medrol 80 mg IV every 8. DuoNeb's every 4hours while awake. Encourage incentive spirometry and flutter valve. Good pain management for encouraging cough. (2) S/P right colectomy Is this a current diagnosis for this admission?: YesPlan: Patient is postoperative day #5 for hemicolectomy. Defer all intra-abdominal processes and its related complications to the primary surgical team. (3) Anxiety Is this a current diagnosis for this admission?: YesPlan: Ativan as needed (4) Hypertension Qualifiers: Hypertension type: essential hypertension Qualified Code(s): I10 - Essential (primary) hypertension Is this a current diagnosis for this admission?: YesPlan: On lisinopril/arthritis and when necessary hydralazine - Time Time Spent with patient: 25-34 minutes Medications reviewed and adjusted accordingly: Yes
[2016-08-07] MEDS: KETOROLAC TROMETHAMINE INJ/PF 30 MG/1 ML SDV IV PRN (16:03)
[2016-08-08] MEDS: KETOROLAC TROMETHAMINE INJ/PF 30 MG/1 ML SDV IV PRN ×2 (00:24→06:53)
[2016-08-08] MEDS: LORAZEPAM INJ 2 MG/1 ML VIAL IV PRN ×2 (02:13→19:26)
[2016-08-08] MEDS: METOCLOPRAMIDE HCL INJ/PF 10 MG/2 ML SDV IV SCH ×4 (02:15→21:03)
[2016-08-08] MEDS: METHYLPREDNISOLONE INJ 40 MG/1 ML SDV IV SCH ×2 (06:53→15:08)
[2016-08-08] MEDS: BUDESONIDE NEB 0.5 MG/2 ML AMPUL NEB SCH ×2 (08:34→20:30)
[2016-08-08] MEDS: OXYCODONE-ACETAMINOPHEN 5-325 MG TABLET PO PRN ×4 (08:59→23:25)
[2016-08-08] MEDS: DOCUSATE SODIUM 100 MG CAPSULE PO SCH ×2 (09:00→17:28)
[2016-08-08] MEDS: FAMOTIDINE INJ/PF 20 MG/2 ML SDV IV SCH ×2 (09:00→21:03)
[2016-08-08] MEDS: LISINOPRIL 10 MG TABLET PO SCH (09:09)
[2016-08-08] MEDS: HYDROCHLOROTHIAZIDE 12.5 MG CAPSULE PO SCH (09:09)
[2016-08-08 10:29] LABS: ANION GAP 15 (5-19); BLOOD UREA NITROGEN 26 mg/dL (7-20); CARBON DIOXIDE 25 mmol/L (22-30); CHLORIDE 99 mmol/L (98-107); CREATININE RESULT 0.77 mg/dL (0.52-1.25); GLUCOSE 139 mg/dL (75-110); MAGNESIUM 1.5 mg/dL (1.6-2.3); POTASSIUM 4.2 mmol/L (3.6-5.0); SODIUM 139.2 mmol/L (137-145)
[2016-08-08] MEDS: ONDANSETRON HCL INJ/PF 4 MG/2 ML SDV IV PRN (12:53)
[2016-08-08] MEDS: PREDNISONE 20 MG TABLET PO SCH (17:28)
--- NOTE | 2016-08-08 18:23 | PDOC PROGRESS REPORT ---
Subjective Progress Note for:: 08/08/16 Subjective:: Patient reports that he doesn't feel as well as yesterday. Patient does report that he has had a bowel movement with some solid and mostly liquid. Patient denies chest pain, shortness of breath, fevers, chills, diarrhea, constipation, headache, new onset weakness. Physical Exam Vital Signs: Temp Pulse Resp BP Pulse Ox 97.7 F 81 16 136/81 H 95 08/08/16 16:01 08/08/16 16:01 08/08/16 16:01 08/08/16 16:01 08/08/16 16:01 Intake & Output 08/07/16 08/08/16 08/09/16 06:59 06:59 06:59 Intake Total 4581 2553 600 Output Total 300 Balance 4581 2253 600 Weight 85.4 kg Exam: General: Awake alert and oriented x3, no acute respiratory distress HEENT: AT/NC, PERRL, EOMI, oropharynx is moist, pink, no scleral icterus, no conjunctival injection Neck: No JVD, trachea midline Chest: Clear to auscultation bilaterally, no wheezes rhonchi or rales CV: Regular rate and rhythm, normal S1 and S2, no murmur, rub, or gallop Abdomen: Soft, nontender to palpation, nondistended, active bowel sounds; no rebound, rigidity, or guarding; well-healing abdominal incision Extremities: No cyanosis, clubbing or edema Neuro: Cranial nerves II through XII are grossly intact without focal deficits; awake alert and oriented x3 Psych: Normal mood and affect Results Laboratory Results: 08/06/16 16:20 08/08/16 09:16 08/08/16 09:16 Sodium 139.2 Potassium 4.2 Chloride 99 Carbon Dioxide 25 Anion Gap 15 BUN 26 H Creatinine 0.77 Est GFR ( Amer) > 60 Est GFR (Non-Af Amer) > 60 Glucose 139 H Calcium 9.0 Magnesium 1.5 L 08/06/16 17:30 Sputum Gram Stain - Final 08/06/16 17:30 Sputum Sputum Culture - Final NORMAL [place] Impressions: Acute Abdomen Series 08/06/16 00:00 IMPRESSION: 1. Intra-abdominal free air noted of the right hemidiaphragm presumed to be related to recent surgical procedure. There are numerous dilated loops of bowel seen throughout the abdomen presumed to represent ileus versus obstruction. Postsurgical changes seen of the abdomen. Chest X-Ray 08/06/16 00:00 IMPRESSION: COPD. No focal infiltrate. Intra-abdominal free air presumed to be related to recent surgery. Multiple dilated loops of bowel likely representing ileus versus obstruction. Assessment & Plan - Diagnosis (1) COPD exacerbation Is this a current diagnosis for this admission?: YesPlan: Chest x-ray revealed no infiltrate. Transition patient to oral prednisone. Continue nebulized treatments. Encourage incentive spirometry (2) S/P right colectomy Is this a current diagnosis for this admission?: YesPlan: Patient is postoperative day #6 for hemicolectomy. Defer all intra-abdominal processes and its related complications to the primary surgical team. (3) Anxiety Is this a current diagnosis for this admission?: YesPlan: Ativan as needed (4) Hypertension Qualifiers: Hypertension type: essential hypertension Qualified Code(s): I10 - Essential (primary) hypertension Is this a current diagnosis for this admission?: YesPlan: On lisinopril/hctz and when necessary hydralazine - Time Time Spent with patient: 25-34 minutes Medications reviewed and adjusted accordingly: Yes
--- NOTE | 2016-08-08 19:26 | PDOC PROGRESS REPORT ---
Subjective Progress Note for:: 08/08/16 Subjective:: Patient had a reasonable night, had gas and stool this morning. Offered her more formal diet and opportunity go home but he is not interested in going home tonight. Physical Exam Vital Signs: Temp Pulse Resp BP Pulse Ox 97.7 F 81 16 136/81 H 95 08/08/16 16:01 08/08/16 16:01 08/08/16 16:01 08/08/16 16:01 08/08/16 16:01 Intake & Output 08/07/16 08/08/16 08/09/16 06:59 06:59 06:59 Intake Total 4581 2553 960 Output Total 300 Balance 4581 2253 960 Weight 85.4 kg General appearance: PRESENT: no acute distress GI/Abdominal exam: PRESENT: soft - Abdomen is soft nontender no peritoneal signs or rigidity roberto intact. There is minimal distention. Results Laboratory Results: 08/06/16 16:20 08/08/16 09:16 08/08/16 09:16 Sodium 139.2 Potassium 4.2 Chloride 99 Carbon Dioxide 25 Anion Gap 15 BUN 26 H Creatinine 0.77 Est GFR ( Amer) > 60 Est GFR (Non-Af Amer) > 60 Glucose 139 H Calcium 9.0 Magnesium 1.5 L 08/06/16 17:30 Sputum Gram Stain - Final 08/06/16 17:30 Sputum Sputum Culture - Final NORMAL [place] Impressions: Acute Abdomen Series 08/06/16 00:00 IMPRESSION: 1. Intra-abdominal free air noted of the right hemidiaphragm presumed to be related to recent surgical procedure. There are numerous dilated loops of bowel seen throughout the abdomen presumed to represent ileus versus obstruction. Postsurgical changes seen of the abdomen. Chest X-Ray 08/06/16 00:00 IMPRESSION: COPD. No focal infiltrate. Intra-abdominal free air presumed to be related to recent surgery. Multiple dilated loops of bowel likely representing ileus versus obstruction. Assessment & Plan - Diagnosis (1) S/P right colectomy Is this a current diagnosis for this admission?: YesPlan: 1. Patient is postoperative day 5 following right hemicolectomy making progress ; anxiousness seems to be his significant barrier to discharge. I believe his bowel function is satisfactory. 2. Anticipate discharge home in the morning. (2) S/P right colectomy Is this a current diagnosis for this admission?: Yes
[2016-08-09] MEDS: METOCLOPRAMIDE HCL INJ/PF 10 MG/2 ML SDV IV SCH ×2 (04:32→09:51)
[2016-08-09] MEDS: OXYCODONE-ACETAMINOPHEN 5-325 MG TABLET PO PRN (05:37)
[2016-08-09] MEDS: BUDESONIDE NEB 0.5 MG/2 ML AMPUL NEB SCH (08:19)
[2016-08-09 08:34] VITALS: BP 139/86
[2016-08-09] MEDS: DOCUSATE SODIUM 100 MG CAPSULE PO SCH (09:50)
[2016-08-09] MEDS: HYDROCHLOROTHIAZIDE 12.5 MG CAPSULE PO SCH (09:50)
[2016-08-09] MEDS: FAMOTIDINE INJ/PF 20 MG/2 ML SDV IV SCH (09:51)
[2016-08-09] MEDS: LISINOPRIL 10 MG TABLET PO SCH (09:51)
[2016-08-09] MEDS: PREDNISONE 20 MG TABLET PO SCH (09:51)
--- NOTE | 2016-08-11 07:33 | DISCHARGE SUMMARY E ---
Discharge Summary NAME: CLINT AMATO : 1955 AGE: 61Y ADMITTED: 08/03/2016 DISCHARGED: 08/09/2016 REASON FOR ADMISSION: Right colon lesion. SUMMARY OF HOSPITALIZATION: The patient is a 61-year-old white male with a history of irregular right colon lesion biopsied and found to be consistent with ulcerative process, could not rule out malignancy. The patient was taken to the operating room by Dr. Spann and underwent right hemicolectomy, laparoscopic. Postoperatively, the patient recovered uneventfully on the floor. He did have a moderate ileus, but eventually this resolved. He was started on a diet and this was advanced and tolerated well. The patient has a history of COPD, required medical consultation with treatment with oral steroids. By the fifth postoperative day, he was felt to be ready for discharge home. FINAL DIAGNOSIS: Status post right hemicolectomy, laparoscopic, by Dr. Spann; final diagnosis consistent with ulceration; no evidence of malignancy. DISPOSITION: Patient will be discharged home in the care of his family. Follow up with Dr. Spann in approximately 1 week. Resume preoperative medications, diet, and activity. He may shower. DICTATING PHYSICIAN: WALTER SPANN M.D. [id number] PHY#: [id number] [id number] JOB#: [id number] ACCT: [id number] cc:WALTER SPANN M.D. >
== END 2016-08-09 10:36 | disposition home or self-care (01) | DRG 330 ==
LOC: INOR 05:18 → 4W 12:20
PROVIDERS: ADMIT Surgery; ATTEND Surgery
PROC: 0DNK4ZZ Release Ascending Colon, Percutaneous Endoscopic Approach (ICD-10-PCS; 2016-08-03)
PROC: 0DTF4ZZ Resection of Right Large Intestine, Percutaneous Endoscopic Approach (ICD-10-PCS; principal; 2016-08-03 07:30)
DX: D12.2 Benign neoplasm of ascending colon (principal); K63.3 Ulcer of intestine; J44.1 Chronic obstructive pulmonary disease with (acute) exacerbation; K66.0 Peritoneal adhesions (postprocedural) (postinfection); E78.5 Hyperlipidemia, unspecified; I10 Essential (primary) hypertension; E11.9 Type 2 diabetes mellitus without complications; M19.049 Primary osteoarthritis, unspecified hand; F41.9 Anxiety disorder, unspecified; F32.9 Major depressive disorder, single episode, unspecified; Z79.899 Other long term (current) drug therapy; Z87.891 Personal history of nicotine dependence
CPT/HCPCS: 36415; 71020; 74022; 790; 80048; 82947; 83735; 84132; 85027; 85610; 87070; 87205; 88307; 93005; 93010; 94640; 94799; C9290; J0131; J0295; J0330; J1100; J1170; J1885; J2060; J2250; J2270; J2370; J2405; J2704; J2765; J2920; J3010; J3480; J3490; J7512; S0028

== ENCOUNTER 2016-08-10 02:37 | Inpatient (IN) | payer MEDICARE, MEDICAID ==
[2016-08-10] MEDS ORDERED: ONDANSETRON HCL INJ/PF 4 MG/2 ML SDV IV ONE ×2 (05:47→07:37)
[2016-08-10 05:58] LABS: ABSOLUTE LYMPHOCYTES (AUTO) 0.7 10^3/uL (0.5-4.7); ABSOLUTE MONOCYTES (AUTO) 0.4 10^3/uL (0.1-1.4); ABSOLUTE NEUT (AUTO) 3.4 10^3/uL (1.7-8.2); EOSINOPHILS % (AUTO) 0.8 % (0-6); HEMATOCRIT 46.9 % (37.9-51.0); HEMOGLOBIN 15.8 g/dL (13.5-17.0); HGB HCT DIFFERENCE 0.5; MEAN CORPUSCULAR HEMOGLOBIN 30.3 pg (27.0-33.4); MEAN CORPUSCULAR HGB CONC 33.7 g/dL (32.0-36.0); MEAN CORPUSCULAR VOLUME 90 fl (80-97); MONOCYTES % (AUTO) 9.6 % (3-13); RED BLOOD COUNT 5.21 10^6/uL (4.35-5.55); RED CELL DISTRIBUTION WIDTH 13.5 % (11.5-14.0); SEGMENTED NEUTROPHILS % (AUTO) 74.6 % (42-78); WHITE BLOOD COUNT 4.5 10^3/uL (4.0-10.5)
[2016-08-10 06:00] LABS: ALANINE AMINOTRANSFERASE 69 U/L (21-72); ALBUMIN 3.9 g/dL (3.5-5.0); ALKALINE PHOSPHATASE 64 U/L (38-126); ANION GAP 13 (5-19); ASPARTATE AMINO TRANSFERASE 23 U/L (17-59); BILIRUBIN,DIRECT 0.3 mg/dL (0.0-0.4); BLOOD UREA NITROGEN 29 mg/dL (7-20); CALCIUM 9.7 mg/dL (8.4-10.2); CARBON DIOXIDE 36 mmol/L (22-30); CHLORIDE 90 mmol/L (98-107); CREATININE RESULT 0.85 mg/dL (0.52-1.25); GLUCOSE 141 mg/dL (75-110); POTASSIUM 4.3 mmol/L (3.6-5.0); TOTAL PROTEIN 6.3 g/dL (6.3-8.2)
[2016-08-10] MEDS ORDERED: NORMAL SALINE 1000 ML 1,000 ML IV ONE (06:03)
[2016-08-10] MEDS ORDERED: MORPHINE SULFATE 10 MG/ML INJ IV ONE ×2 (07:37→11:50)
[2016-08-10] MEDS ORDERED: PROMETHAZINE HCL INJ 25 MG/1 ML VIAL IM ONE (08:53)
--- NOTE | 2016-08-10 09:31 | ER Document Report ---
ED General - General Chief Complaint: Nausea/Vomiting Stated Complaint: NAUSEA/VOMITING TRAVEL OUTSIDE OF THE [place] IN LAST 30 DAYS: No - HPI Patient complains to provider of: nausea vomiting abdominal pain Notes: Patient is partially postop day 4 recently discharged home states was eating applesauce and clear liquids when throughout the night developed abdominal pain nausea vomiting patient states not pass any gas since that time. Patient states his abdomen is distended. Denies fevers chills. - Related Data Allergies/Adverse Reactions: No Known Allergies Allergy (Verified 08/10/16 03:05) Past Medical History - Social History Smoking Status: Unknown if Ever Smoked Family History: Arthritis, CAD, DM, Hyperlipidemia, Hypertension, Malignancy Patient has suicidal ideation: No Patient has homicidal ideation: No - Past Medical History Cardiac Medical History: Reports: Hx Hypercholesterolemia, Hx Hypertension Denies: Hx Atrial Fibrillation, Hx Congestive Heart Failure, Hx Coronary Artery Disease, Hx Heart Attack, Hx Peripheral Vascular Disease, Hx Pulmonary Embolism, Hx Heart Murmur Pulmonary Medical History: Reports: Hx Asthma, Hx Bronchitis, Hx COPD Denies: Hx Pneumonia, Hx Respiratory Failure, Hx Sleep Apnea, Hx Tuberculosis Neurological Medical History: Denies: Hx Cerebrovascular Accident, Hx Seizures Endocrine Medical History: Reports: Hx Diabetes Mellitus Type 2 - ? states told may be borderline need to watch diet Renal/ Medical History: Denies: Hx Peritoneal Dialysis Malignancy Medical History: Denies Hx Lung Cancer GI Medical History: Denies: Hx Crohn's Disease, Hx Gastroesophageal Reflux Disease, Hx Hiatal Hernia, Hx Irritable Bowel, Hx Liver Failure, Hx Ulcer Musculoskeltal Medical History: Reports Hx Arthritis - hands, Denies Hx Fibromyalgia, Denies Hx Muscular Dystrophy, Reports Hx Musculoskeletal Deformity , Reports Hx Musculoskeletal Trauma Psychiatric Medical History: Reports: Hx Anxiety, Hx Depression Traumatic Medical History: Reports: Hx Fractures - rt foot Past Surgical History: Reports: Hx Bowel Surgery, Hx Orthopedic Surgery - rt hand and ankle, Other - Colectomy. Denies: Hx Appendectomy, Hx Cholecystectomy , Hx Colostomy, Hx Coronary Artery Bypass Graft, Hx Gastric Bypass Surgery, Hx Herniorrhaphy, Hx Pacemaker, Hx Tonsillectomy - Immunizations Hx Diphtheria, Pertussis, Tetanus Vaccination: Yes Review of Systems - Review of Systems Constitutional: No symptoms reported EENT: No symptoms reported Cardiovascular: No symptoms reported Respiratory: No symptoms reported Gastrointestinal: Abdominal pain, Nausea, Vomiting Genitourinary: No symptoms reported Male Genitourinary: No symptoms reported Musculoskeletal: No symptoms reported Skin: No symptoms reported Hematologic/Lymphatic: No symptoms reported Neurological/Psychological: No symptoms reported Physical Exam - Vital signs Vitals: Temp Pulse Resp BP Pulse Ox 97.4 F 102 H 20 144/95 H 93 08/10/16 03:05 08/10/16 03:05 08/10/16 03:05 08/10/16 03:05 08/10/16 03:05 Interpretation: Normal - General General appearance: Appears well, Alert - HEENT Head: Normocephalic, Atraumatic Eyes: Normal Pupils: PERRL - Respiratory Respiratory status: No respiratory distress Chest status: Nontender Breath sounds: Normal Chest palpation: Normal - Cardiovascular Rhythm: Regular Heart sounds: Normal auscultation Murmur: No - Abdominal Inspection: Normal Distension: No distension Bowel sounds: Normal Tenderness: Tender - Moderate tenderness diffuse patient does have postsurgical midline scars with roberto attached and the appropriate laparoscopic trocar scars sutures in place no signs of infection on either of the surgical scars Organomegaly: No organomegaly - Back Back: Normal, Nontender - Extremities General upper extremity: Normal inspection, Nontender, Normal color, Normal ROM , Normal temperature General lower extremity: Normal inspection, Nontender, Normal color, Normal ROM , Normal temperature, Normal weight bearing. No: Nga's sign - Neurological Neuro grossly intact: Yes Cognition: Normal Orientation: AAOx4 [place] Coma Scale Eye Opening: Spontaneous Tod Coma Scale Verbal: Oriented [place] Coma Scale Motor: Obeys Commands Tod Coma Scale Total: 15 Speech: Normal Motor strength normal: LUE, RUE, LLE, RLE Sensory: Normal - Psychological Associated symptoms: Normal affect, Normal mood - Skin Skin Temperature: Warm Skin Moisture: Dry Skin Color: Normal Course - Re-evaluation Re-evalutation: 08/10/16 09:30 Discuss with surgery on-call recommend a CT scan oral and IV contrast. Patient is having a difficult time tolerating the oral contrast. Will give IM Phenergan and follow-up. 08/10/16 14:11 Patient was unable to tolerate oral contrast operating physician Dr. Benjamin is came down to evaluate patient recommended rectal contrast study and admission to the hospital. Dr. Hollingsworth surgeon on-call admit patient to surgical floor - Vital Signs Vital signs: Temp Pulse Resp BP Pulse Ox 97.4 F 102 H 18 154/95 H 94 08/10/16 04:36 08/10/16 04:36 08/10/16 14:01 08/10/16 14:01 08/10/16 14:01 - Laboratory Result Diagrams: 08/10/16 04:30 08/10/16 04:30 Laboratory results interpreted by me: 08/10/16 08/10/16 04:30 09:10 Chloride 90 L Carbon Dioxide 36 H BUN 29 H Glucose 141 H Urine Ketones 20 H Critical Care Note - Critical Care Note Total time excluding time spent on procedures (mins): 35 Comments: Multiple evaluation of her concern of a small bowel obstruction consultations with surgical staff Discharge - Discharge Clinical Impression: ileus versus SBO Nausea & vomiting Qualifiers: Vomiting type: unspecified Vomiting Intractability: unspecified Qualified Code( s): R11.2 - Nausea with vomiting, unspecified Admitting Provider: Surgicalist - [facility] Admitted: Surgical Floor
[2016-08-10 09:43] LABS: APPEARANCE,URINE SLIGHTLY-CLOUDY; BILIRUBIN,URINE NEGATIVE (NEGATIVE); GLUCOSE, URINE NEGATIVE (NEGATIVE); KETONES,URINE 20 mg/dL (NEGATIVE); LEUKOCYTE ESTERASE,URINE NEGATIVE (NEGATIVE); NITRITE,URINE NEGATIVE (NEGATIVE); PROTEIN,URINE NEGATIVE (NEGATIVE); URINE SPECIFIC GRAVITY 1.021; UROBILINOGEN,URINE NEGATIVE mg/dL (<2.0)
[2016-08-10] MEDS ORDERED: PHARMACY COMMUNICATION ORDER MC NR (11:45)
[2016-08-10] MEDS ORDERED: LIDOCAINE 1% INJ-PF (10 MG/ML) 30 ML SDV NEB ONE (11:50)
--- NOTE | 2016-08-10 12:54 | HISTORY AND PHYSICAL E ---
History and Physical NAME: CLINT AMATO : 1955 AGE: 61Y ADMITTED: 08/10/2016 ROOM: ED09 REASON FOR ADMISSION: Ileus. HISTORY OF PRESENT ILLNESS: This is a 61-year-old male who underwent laparoscopic right colon resection about a week ago. The patient was discharged yesterday morning only to come back with episodes of vomiting at home. In the emergency room, he had a Gastrografin through the rectum and noted the anastomotic site was patent. However, obvious ileus in the small bowel. An NG tube was then inserted in the emergency room which initially drained about 300 mL of light greenish material. PAST MEDICAL HISTORY: History of hypertension and takes lisinopril with hydrochlorothiazide 20/12.5 mg daily. Also takes simvastatin 10 mg daily since discharge. PAST SURGICAL HISTORY: Right hand and right ankle surgery in the past. REVIEW OF SYSTEMS: As in HPI, complaining of abdominal pain with nausea and vomiting. No bowel movement. He denies any fever and the rest of the systems are unremarkable. FAMILY HISTORY: Noncontributory. The patient did have a history of colonic ulceration and no apparent cancer noted in the specimen. ALLERGIES: None known. SOCIAL HISTORY: Denies smoking; used to drink heavily; denies any drug use and he smokes marijuana rarely. PHYSICAL EXAMINATION: GENERAL: A well-developed, well-nourished, 61-year-old male. Alert and oriented. Complaining of some nausea. HEENT: Neck is supple. No thyromegaly. LUNGS: Clear. HEART: Regular sinus rhythm. ABDOMEN: Distended but quite soft. Incisions are clean and dry. EXTREMITIES: Show no edema. IMPRESSION: Status post laparoscopic right hemicolectomy with ileus. PLAN: 1. Leave NG tube for now. 2. Make sure electrolytes are followed up. 3. Continue hydration. DICTATING PHYSICIAN: SIVA KNUTSON M.D. [id number] PHY#: [id number] ID: [id number] JOB#: [id number] ACCT: [id number] cc:SIVA KNUTSON M.D. >
[2016-08-10] MEDS ORDERED: ONDANSETRON HCL INJ/PF 4 MG/2 ML SDV IV PRN (14:40)
[2016-08-10] MEDS: MORPHINE SULFATE 10 MG/ML INJ IV PRN ×2 (17:28→21:47)
[2016-08-10] MEDS: HEPARIN SOD (PORCINE) 5,000 UNIT/ML 1 ML SYRINGE SUBCUT SCH (21:47)
[2016-08-11] MEDS: ONDANSETRON HCL INJ/PF 4 MG/2 ML SDV IV PRN ×2 (02:45→09:28)
[2016-08-11] MEDS: MORPHINE SULFATE 10 MG/ML INJ IV PRN ×4 (03:23→15:59)
[2016-08-11 05:21] LABS: ABSOLUTE LYMPHOCYTES (AUTO) 0.5 10^3/uL (0.5-4.7); ABSOLUTE MONOCYTES (AUTO) 0.4 10^3/uL (0.1-1.4); ABSOLUTE NEUT (AUTO) 2.8 10^3/uL (1.7-8.2); EOSINOPHILS % (AUTO) 0.6 % (0-6); HEMATOCRIT 36.5 % (37.9-51.0); HGB HCT DIFFERENCE 0.4; LYMPHOCYTES % (AUTO) 13.6 % (13-45); MEAN CORPUSCULAR HEMOGLOBIN 30.6 pg (27.0-33.4); MEAN CORPUSCULAR HGB CONC 33.8 g/dL (32.0-36.0); MEAN CORPUSCULAR VOLUME 91 fl (80-97); MONOCYTES % (AUTO) 10.9 % (3-13); RED BLOOD COUNT 4.03 10^6/uL (4.35-5.55); RED CELL DISTRIBUTION WIDTH 13.1 % (11.5-14.0); SEGMENTED NEUTROPHILS % (AUTO) 74.9 % (42-78); WHITE BLOOD COUNT 3.8 10^3/uL (4.0-10.5)
[2016-08-11 05:43] LABS: ANION GAP 12 (5-19); BLOOD UREA NITROGEN 27 mg/dL (7-20); CALCIUM 8.1 mg/dL (8.4-10.2); CARBON DIOXIDE 28 mmol/L (22-30); CHLORIDE 102 mmol/L (98-107); CREATININE RESULT 0.74 mg/dL (0.52-1.25); GLUCOSE 89 mg/dL (75-110); POTASSIUM 3.7 mmol/L (3.6-5.0); SODIUM 141.8 mmol/L (137-145)
[2016-08-11 06:04] LABS: HEMOGLOBIN 12.3 g/dL (13.5-17.0)
[2016-08-11] MEDS: HEPARIN SOD (PORCINE) 5,000 UNIT/ML 1 ML SYRINGE SUBCUT SCH ×2 (09:28→22:28)
--- NOTE | 2016-08-11 10:03 | PDOC PROGRESS REPORT ---
Subjective Progress Note for:: 08/11/16 Subjective:: Patient is postoperative day 7 status post right hemicolectomy for nonmalignant ulceration. He required readmission due to failure to thrive, postoperative ileus. Yesterday he had a contrast study with oral as well as rectal contrast which showed no evidence of intestinal leak, anastomosis, or mechanical obstruction. Overnight patient had nasogastric drainage which diminished. He's had multiple loose bowel movements and feels much better. Physical Exam Vital Signs: Temp Pulse Resp BP Pulse Ox 97.3 F 80 16 152/80 H 93 08/11/16 09:00 08/11/16 09:00 08/11/16 09:00 08/11/16 09:00 08/11/16 09:00 Intake & Output 08/10/16 08/11/16 08/12/16 06:59 06:59 06:59 Intake Total 0 Output Total 1503 Balance -1503 General appearance: PRESENT: no acute distress Respiratory exam: PRESENT: other - No wheezing GI/Abdominal exam: PRESENT: other - Soft, nondistended no tenderness. Results Laboratory Results: 08/11/16 04:29 08/11/16 04:29 08/11/16 08/11/16 04:29 04:29 WBC 3.8 L RBC 4.03 L Hgb 12.3 L D Hct 36.5 L MCV 91 MCH 30.6 MCHC 33.8 RDW 13.1 Plt Count 164 Seg Neutrophils % 74.9 Lymphocytes % 13.6 Monocytes % 10.9 Eosinophils % 0.6 Basophils % 0.0 Absolute Neutrophils 2.8 Absolute Lymphocytes 0.5 Absolute Monocytes 0.4 Absolute Eosinophils 0.0 Absolute Basophils 0.0 Sodium 141.8 Potassium 3.7 Chloride 102 Carbon Dioxide 28 Anion Gap 12 BUN 27 H Creatinine 0.74 Est GFR ( Amer) > 60 Est GFR (Non-Af Amer) > 60 Glucose 89 Calcium 8.1 L Impressions: Abdomen/Pelvis CT 08/10/16 00:00 IMPRESSION: No CT evidence of anastomotic leak Fluid filled small bowel loops and stomach, likely an ileus post right hemicolectomy Acute Abdomen Series 08/10/16 06:03 IMPRESSION: Ileus versus partial small bowel obstruction. Continued follow-up is recommended. KUB X-Ray 08/10/16 11:42 IMPRESSION: Nasogastric tube tip and side port in the stomach. Stomach is decompressed Persistent dilated small bowel loops in the mid abdomen unchanged from studies earlier today Clearance of rectal contrast from the colon since the prior CT exam today Assessment & Plan - Diagnosis (1) Nausea & vomiting Qualifiers: Vomiting type: unspecified Vomiting Intractability: unspecified Qualified Code(s): R11.2 - Nausea with vomiting, unspecified Is this a current diagnosis for this admission?: YesPlan: 1. Continue NG tube, but start clamping trials. Continue IV fluids. 2. Get patient to shower. Continue ambulation. 3. We will discourage narcotics; 4. Discontinue roberto.
[2016-08-11] MEDS: KETOROLAC TROMETHAMINE INJ/PF 30 MG/1 ML SDV IV PRN (20:18)
[2016-08-12] MEDS: KETOROLAC TROMETHAMINE INJ/PF 30 MG/1 ML SDV IV PRN ×3 (01:49→18:52)
[2016-08-12] MEDS: ONDANSETRON HCL INJ/PF 4 MG/2 ML SDV IV PRN (04:13)
--- NOTE | 2016-08-12 10:42 | PDOC PROGRESS REPORT ---
Subjective Progress Note for:: 08/12/16 Subjective:: Feels better, having multiple bowel movements, tolerated NG tube out. He remains anxious. Physical Exam Vital Signs: Temp Pulse Resp BP Pulse Ox 97.4 F 66 16 142/80 H 97 08/12/16 07:47 08/12/16 07:47 08/12/16 07:47 08/12/16 07:47 08/12/16 07:47 Intake & Output 08/11/16 08/12/16 08/13/16 06:59 06:59 06:59 Intake Total 0 2400 Output Total 1503 200 Balance -1503 2200 Weight 80 kg General appearance: PRESENT: no acute distress GI/Abdominal exam: PRESENT: other - Abdomen is soft, all roberto out. No peritoneal signs no rigidity. Results Laboratory Results: 08/11/16 04:29 08/11/16 04:29 Impressions: Abdomen/Pelvis CT 08/10/16 00:00 IMPRESSION: No CT evidence of anastomotic leak Fluid filled small bowel loops and stomach, likely an ileus post right hemicolectomy Acute Abdomen Series 08/10/16 06:03 IMPRESSION: Ileus versus partial small bowel obstruction. Continued follow-up is recommended. KUB X-Ray 08/10/16 11:42 IMPRESSION: Nasogastric tube tip and side port in the stomach. Stomach is decompressed Persistent dilated small bowel loops in the mid abdomen unchanged from studies earlier today Clearance of rectal contrast from the colon since the prior CT exam today Assessment & Plan - Diagnosis (1) Nausea & vomiting Qualifiers: Vomiting type: unspecified Vomiting Intractability: unspecified Qualified Code(s): R11.2 - Nausea with vomiting, unspecified Is this a current diagnosis for this admission?: Yes (2) Ileus, postoperative Is this a current diagnosis for this admission?: YesPlan: 1. Start ice chips 2. Check abdominal films; if gas pattern consistent with clinical improvement, we will advance diet as tolerated. 3. Hopefully home in the next 24-48 hours.
[2016-08-12] MEDS: HEPARIN SOD (PORCINE) 5,000 UNIT/ML 1 ML SYRINGE SUBCUT SCH ×2 (11:02→21:03)
[2016-08-13] MEDS: KETOROLAC TROMETHAMINE INJ/PF 30 MG/1 ML SDV IV PRN ×2 (02:30→11:49)
[2016-08-13] MEDS: ONDANSETRON HCL INJ/PF 4 MG/2 ML SDV IV PRN (05:48)
--- NOTE | 2016-08-13 09:00 | PDOC PROGRESS REPORT ---
Subjective Progress Note for:: 08/13/16 Subjective:: HAD BM FEELING BETTER Physical Exam Vital Signs: Temp Pulse Resp BP Pulse Ox 97.8 F 71 17 152/84 H 98 08/12/16 23:51 08/12/16 23:51 08/12/16 23:51 08/12/16 23:51 08/12/16 23:51 Intake & Output 08/12/16 08/13/16 08/14/16 06:59 06:59 06:59 Intake Total 2400 3600 Output Total 200 Balance 2200 3600 Weight 80 kg 80 kg GI/Abdominal exam: PRESENT: other - ABDOMEN SOFT NO DISTENTION Results Laboratory Results: 08/11/16 04:29 08/11/16 04:29 Impressions: Abdomen/Pelvis CT 08/10/16 00:00 IMPRESSION: No CT evidence of anastomotic leak Fluid filled small bowel loops and stomach, likely an ileus post right hemicolectomy Acute Abdomen Series 08/10/16 06:03 IMPRESSION: Ileus versus partial small bowel obstruction. Continued follow-up is recommended. KUB X-Ray 08/10/16 11:42 IMPRESSION: Nasogastric tube tip and side port in the stomach. Stomach is decompressed Persistent dilated small bowel loops in the mid abdomen unchanged from studies earlier today Clearance of rectal contrast from the colon since the prior CT exam today Abdomen X-Ray 08/12/16 00:00 IMPRESSION: Trace subdiaphragmatic free air post surgery Decreasing gaseous distention of small bowel loops compared to films on 08/10/2016 Assessment & Plan - Plan Summary Plan Summary: eARLY POST OP OBSTRUCTION - RESOLVING ADVANCE DIET
[2016-08-13] MEDS: HEPARIN SOD (PORCINE) 5,000 UNIT/ML 1 ML SYRINGE SUBCUT SCH ×2 (09:32→21:41)
[2016-08-13] MEDS: NORMAL SALINE 1000 ML 1,000 ML IV PRN (13:22)
[2016-08-14] MEDS: KETOROLAC TROMETHAMINE INJ/PF 30 MG/1 ML SDV IV PRN ×3 (00:36→11:56)
[2016-08-14] MEDS: NORMAL SALINE 1000 ML 1,000 ML IV PRN (06:07)
[2016-08-14] MEDS: HEPARIN SOD (PORCINE) 5,000 UNIT/ML 1 ML SYRINGE SUBCUT SCH (10:04)
[2016-08-14 12:03] VITALS: BP 157/87
--- NOTE | 2016-08-14 15:48 | DISCHARGE SUMMARY E ---
Discharge Summary NAME: CLINT AMATO : 1955 AGE: 61Y ADMITTED: 08/10/2016 DISCHARGED: 08/14/2016 ADMITTING DIAGNOSIS: Early postoperative small bowel obstruction. DISCHARGE DIAGNOSIS: Early postoperative small bowel obstruction, completely resolved with conservative management. DISCHARGE MEDICATIONS: No special medications except for the patient was asked to continue the stool softeners. DISCHARGE INSTRUCTIONS: The patient was asked to eat meals more often, less acid, low residue diet. Follow up in the surgical clinic in 2 weeks. HOSPITAL COURSE AND REASON FOR ADMISSION: The patient had a right colon resection for ulcerated lesion that went well. He was discharged home after postoperative recovery. After going home, the patient started having abdominal distention, nausea. He was re-admitted. Abdominal examination with distended small bowel loops, possible re-obstruction. He was kept in the hospital, managed conservatively with n.p.o., hydration, and bowel rest, and then after 2 days, the patient started having bowel movements from yesterday. He had multiple bowel movements and then advanced his diet from liquid diet to regular diet solid food gradually. By this morning, he is doing very well, had more bowel movements, feeling good, and no pain at all. Minimal pain on abdominal examination, soft, nontender. The rest of the system examination normal. At the time of discharge, the patient doing well and resolved obstruction. Follow up in clinic in 2 weeks. DICTATING PHYSICIAN: KARLA ROBISON M.D. [id number] PHY#: [id number] ID: [id number] JOB#: [id number] ACCT: [id number] cc:KARLA ROBISON M.D. [facility],
== END 2016-08-14 12:39 | disposition home or self-care (01) | DRG 395 ==
LOC: ER 02:37 → EH 11:01 → 4N 17:05
PROVIDERS: ADMIT Surgery; ATTEND Surgery
DX: K91.3 Postprocedural intestinal obstruction (principal); R11.2 Nausea with vomiting, unspecified; I10 Essential (primary) hypertension; E78.5 Hyperlipidemia, unspecified; J45.909 Unspecified asthma, uncomplicated; E11.9 Type 2 diabetes mellitus without complications; F41.8 Other specified anxiety disorders
CPT/HCPCS: 36415; 74000; 74020; 74022; 74177; 80048; 80053; 81001; 85025; 96372; 96374; 96375; 96376; 99291; J1644; J1885; J2270; J2405; J2550; J3490; J7030

== ENCOUNTER 2016-08-17 12:25 | Inpatient (IN) | payer MEDICARE, MEDICAID ==
--- NOTE | 2016-08-17 14:34 | ER Document Report ---
ED General - General Time seen by provider: 15:00 Mode of Arrival: Medic Information source: Patient, Relative - spouse and daughter TRAVEL OUTSIDE OF THE [place] IN LAST 30 DAYS: No - HPI Onset: Other - see HPI note Associated symptoms: Diarrhea, Nausea, Vomiting Similar symptoms previously: Yes Recently seen / treated by doctor: Yes <SHARONDA SNATIAGO - Last Filed: 08/17/16 20:08> <ASHLEY MCCLURE - Last Filed: 08/17/16 21:42> - General Chief Complaint: Abdominal Pain Stated Complaint: ABDOMINAL PAIN Notes: Patient is a 61 year old male presenting to the emergency department for abdominal pain, diarrhea, and nausea. Patient had a right hemicholectomy on 08/03. Patient was sent home on 08/09/16 from this procedure. Patient returned to the ED on 08/10/16 for abdominal pain., vomiting, and nausea. Patient was admitted at this time for an illeus. Patient was discharged on 08/14/16. Patient returns today for increased pain in his abdomen, nausea, diarrhea, and "lots of gas." Patient states his pain was completely unbearable yesterday. Patient states his pain is somewhat relieved after passing gas and is worsened with increased amount of gas. Patient has had diarrhea x3 today. Patient states he also has some dysuria for the first time today. Patient states his pain on the right side. Patient states he took a percocet yesterday around 19:00. Patient's primary care physician is Dr. Bland. Patient has not had any vomiting over the past couple of days. Patient has no known allergies. (SHARONDA SANTIAGO) - Related Data Allergies/Adverse Reactions: No Known Allergies Allergy (Verified 08/17/16 12:48) Home Medications: Current Home Medications Albuterol Sulfate [Proair HFA] 1 puff IH Q4HP PRN 08/17/16 [History] Lisinopril/Hydrochlorothiazide [Zestoretic 20-12.5 mg Tablet] 1 tab PO DAILY 04/23 [History] Simvastatin [Zocor 10 mg Tablet] 10 mg PO QHS 08/17/16 [History] Past Medical History - General Information source: Patient, Relative - spouse and daughter - Social History Smoking Status: Unknown if Ever Smoked Family History: Arthritis, CAD, DM, Hyperlipidemia, Hypertension, Malignancy Patient has suicidal ideation: No Patient has homicidal ideation: No - Past Medical History Cardiac Medical History: Reports: Hx Hypercholesterolemia, Hx Hypertension Pulmonary Medical History: Reports: Hx Asthma, Hx Bronchitis, Hx COPD Endocrine Medical History: Reports: Hx Diabetes Mellitus Type 2 - ? states told may be borderline need to watch diet GI Medical History: Denies: Hx Crohn's Disease, Hx Gastroesophageal Reflux Disease, Hx Hiatal Hernia, Hx Irritable Bowel, Hx Liver Failure, Hx Ulcer Musculoskeltal Medical History: Reports Hx Arthritis - hands, Reports Hx Musculoskeletal Deformity, Reports Hx Musculoskeletal Trauma Psychiatric Medical History: Reports: Hx Anxiety, Hx Depression Traumatic Medical History: Reports: Hx Fractures - rt foot Past Surgical History: Reports: Hx Bowel Surgery, Hx Orthopedic Surgery - rt hand and ankle, Other - Colectomy - Immunizations Hx Diphtheria, Pertussis, Tetanus Vaccination: Yes <SHARONDA SANTIAGO - Last Filed: 08/17/16 20:08> Review of Systems - Review of Systems Constitutional: See HPI, Malaise EENT: No symptoms reported Cardiovascular: No symptoms reported Respiratory: No symptoms reported Gastrointestinal: See HPI, Abdominal pain, Diarrhea, Nausea, Poor appetite, Poor fluid intake Genitourinary: No symptoms reported Male Genitourinary: No symptoms reported Musculoskeletal: No symptoms reported Skin: No symptoms reported Hematologic/Lymphatic: No symptoms reported Neurological/Psychological: No symptoms reported -: Yes All other systems reviewed and negative <SHARONDA SANTIAGO - Last Filed: 08/17/16 20:08> Physical Exam - Vital signs Interpretation: Tachycardic - General General appearance: Appears well - patient is pleasant, Alert In distress: Mild - HEENT Head: Normocephalic, Atraumatic Eyes: Normal Pupils: PERRL Mucous membranes: Dry - Respiratory Respiratory status: No respiratory distress Chest status: Nontender Breath sounds: Normal Chest palpation: Normal - Cardiovascular Rhythm: Regular Heart sounds: Normal auscultation Murmur: No - Abdominal Inspection: Other - surgical wounds are dry and intact, with no sign of erythema or drainage Distension: No distension Bowel sounds: Normal Tenderness: Tender - mild diffuse tenderness with palpitation Organomegaly: No organomegaly - Back Back: Normal, Nontender - Extremities General upper extremity: Normal inspection, Normal ROM, Normal strength General lower extremity: Normal inspection, Normal ROM, Normal strength - Neurological Neuro grossly intact: Yes Cognition: Normal Orientation: AAOx4 Tod Coma Scale Eye Opening: Spontaneous Mcdaniels Coma Scale Verbal: Oriented Mcdaniels Coma Scale Motor: Obeys Commands Mcdaniels Coma Scale Total: 15 Speech: Normal - Psychological Associated symptoms: Normal affect, Normal mood - Skin Skin Temperature: Warm Skin Moisture: Dry <SHARONDA SANTIAGO - Last Filed: 08/17/16 20:08> <ASHLEY MCCLURE - Last Filed: 08/17/16 21:42> - Vital signs Vitals: Temp Pulse Resp BP Pulse Ox 98.2 F 103 H 19 123/77 96 08/17/16 12:48 08/17/16 12:48 08/17/16 12:48 08/17/16 12:48 08/17/16 12:48 Course - Laboratory Result Diagrams: 08/17/16 14:23 08/17/16 15:21 - Consults Dr. Hollingsworth Time consulted: 14:40 <SHARONDA SANTIAGO - Last Filed: 08/17/16 20:08> - Laboratory Result Diagrams: 08/17/16 14:23 08/17/16 15:21 <ASHLEY MCCLURE - Last Filed: 08/17/16 21:42> - Re-evaluation Re-evalutation: 08/17/16 Patient is a 61-year-old male who comes in with some mild tenderness to palpation and nausea. Patient states that he has been passing gas. Patient recently was admitted to the hospital for ileus after colon surgery, hemicolectomy. Patient denies any vomiting today or yesterday. Dilated loops of bowel on x-ray. Patient appears clinically dry. Discussed with Dr. Hollingsworth who initially recommended NG tube. Patient really does not want to do that. We will hold NG tube for this time and patient will not receive any opiate medication to see if this helps with his condition. Patient will be admitted for rehydration and monitoring. Stable at time of admission. (ASHLEY MCCLURE) - Vital Signs Vital signs: Temp Pulse Resp BP Pulse Ox 97.8 F 94 17 127/88 H 97 08/17/16 17:31 08/17/16 20:24 08/17/16 20:24 08/17/16 20:24 08/17/16 20:24 - Laboratory Laboratory results interpreted by me: 08/17/16 08/17/16 08/17/16 14:23 15:00 15:21 WBC 17.1 H Seg Neuts % (Manual) 96 H Lymphocytes % (Manual) 3 L Monocytes % (Manual) 1 L Abs Neuts (Manual) 16.4 H Potassium 3.1 L Chloride 96 L Glucose 115 H Calcium 8.2 L AST 13 L Total Protein 5.4 L Albumin 3.0 L Urine Protein 30 H Urine Ketones 20 H Urine Urobilinogen 4.0 H - Consults Dr. Hollingsworth Reason for consultation: 08/17/16 14:40 Called/paged Dr. Hollingsworth to consult and see patient; he is currently in the OR but will be notified. 08/17/16 15:30 Dr. Hollingsworth came to the ED; discussed patient and brought him to the patient's room for evaluation. 08/17/16 16:[address] Hollingsworth in the ED; discussed possible admission; he wants to wait to see the results of the patient's abdomen X-ray. 08/17/16 17:[address] Hollingsworth in the ED; still awaiting the patient's x-ray to determine plan for patient. 08/17/16 17:[address] Hollingsworth in the ED about patient. 08/17/16 18:[address] Hollingsworth in the ED about patient; he will admit the patient. 08/17/16 20:[address] Hollingsworth to ask about orders for patient. (SHARONDA SANTIAGO) Critical Care Note - Critical Care Note Total time excluding time spent on procedures (mins): 35 - evaluation and management of abdominal pain, recent surgical patient, consultation with specialist, coordination of admission, counseling of patient <ASHLEY MCCLURE - Last Filed: 08/17/16 21:42> Discharge <SHARONDA SANTIAGO - Last Filed: 08/17/16 20:08> - Discharge Admitting Provider: Surgicalist Pam Hollingsworth Unit Admitted: Surgical Floor <ASHLEY MCCLURE - Last Filed: 08/17/16 21:42> - Discharge Clinical Impression: Ileus, postoperative, Dehydration Condition: Stable Disposition: ADMITTED INPATIENT Scribe Attestation: 08/17/16 21:41 I personally performed the services described in the documentation, reviewed and edited the documentation which was dictated to the scribe in my presence, and it accurately records my words and actions. (ASHLEY MCCLURE) Scribe Documentation - Scribe Written by Scribe:: Sharonda Santiago 08/17/16 15:15 acting as scribe for :: Chase <SHARONDA SANTIAGO - Last Filed: 08/17/16 20:08>
[2016-08-17 14:35] LABS: HEMATOCRIT 41.9 % (37.9-51.0); HEMOGLOBIN 14.3 g/dL (13.5-17.0); MEAN CORPUSCULAR HEMOGLOBIN 30.1 pg (27.0-33.4); MEAN CORPUSCULAR HGB CONC 34.2 g/dL (32.0-36.0); MEAN CORPUSCULAR VOLUME 88 fl (80-97); RED BLOOD COUNT 4.77 10^6/uL (4.35-5.55); RED CELL DISTRIBUTION WIDTH 13.5 % (11.5-14.0); WHITE BLOOD COUNT 17.1 10^3/uL (4.0-10.5)
[2016-08-17 14:55] LABS: BASOPHILS % (MANUAL) 0 % (0-2); EOSINOPHILS % (MANUAL) 0 % (0-6); LYMPHOCYTES % (MANUAL) 3 % (13-45); TOTAL CELLS COUNTED 100
[2016-08-17 14:56] LABS: RBC MORPHOLOGY COMMENT NORMO-CYTIC/CHROMIC; TOXIC GRANULATION SLIGHT; TOXIC VACUOLATION PRESENT
[2016-08-17] MEDS ORDERED: NORMAL SALINE 500 ML IV ONE (15:06)
[2016-08-17 15:22] LABS: APPEARANCE,URINE SLIGHTLY-CLOUDY; BILIRUBIN,URINE NEGATIVE (NEGATIVE); GLUCOSE, URINE NEGATIVE (NEGATIVE); KETONES,URINE 20 mg/dL (NEGATIVE); LEUKOCYTE ESTERASE,URINE NEGATIVE (NEGATIVE); NITRITE,URINE NEGATIVE (NEGATIVE); PROTEIN,URINE 30 mg/dL (NEGATIVE); URINE SPECIFIC GRAVITY 1.018
[2016-08-17 16:08] LABS: ALANINE AMINOTRANSFERASE 28 U/L (21-72); ALKALINE PHOSPHATASE 56 U/L (38-126); ANION GAP 12 (5-19); ASPARTATE AMINO TRANSFERASE 13 U/L (17-59); BILIRUBIN,DIRECT 0.4 mg/dL (0.0-0.4); BILIRUBIN,TOTAL 1.2 mg/dL (0.2-1.3); BLOOD UREA NITROGEN 10 mg/dL (7-20); CALCIUM 8.2 mg/dL (8.4-10.2); CARBON DIOXIDE 30 mmol/L (22-30); CHLORIDE 96 mmol/L (98-107); CREATININE RESULT 0.55 mg/dL (0.52-1.25); GLUCOSE 115 mg/dL (75-110); LIPASE 24.7 U/L (23-300); POTASSIUM 3.1 mmol/L (3.6-5.0); SODIUM 138.3 mmol/L (137-145); TOTAL PROTEIN 5.4 g/dL (6.3-8.2)
[2016-08-17] MEDS ORDERED: NORMAL SALINE 1000 ML 1,000 ML IV ONE ×2 (16:10→19:58)
[2016-08-17 16:12] LABS: PROTHROMBIN TIME 13.8 SEC (11.4-15.4)
[2016-08-17 16:13] LABS: PARTIAL THROMBOPLASTIN TIME 29.3 SEC (23.5-35.8)
[2016-08-17] MEDS ORDERED: METOCLOPRAMIDE HCL INJ/PF 10 MG/2 ML SDV IV ONE (18:16)
[2016-08-17] MEDS ORDERED: LIDOCAINE 2% URO-JET 5 ML KIT MM ONE (18:16)
[2016-08-17] MEDS ORDERED: MORPHINE SULFATE 10 MG/ML INJ IV ONE (18:17)
--- NOTE | 2016-08-17 19:07 | EKG REPORT ---
SEVERITY:- BORDERLINE ECG - SINUS RHYTHM BORDERLINE T ABNORMALITIES, ANT-LAT LEADS : Confirmed by: Darell Desai MD 17-Aug-2016 19:06:21
[2016-08-17] MEDS ORDERED: METOCLOPRAMIDE HCL INJ/PF 10 MG/2 ML SDV ONE (19:51)
[2016-08-17] MEDS ORDERED: DICYCLOMINE HCL INJ 20 MG/2 ML AMPULE IM ONE (20:00)
--- NOTE | 2016-08-17 20:33 | HISTORY AND PHYSICAL E ---
History and Physical NAME: CLINT AMATO : 1955 AGE: 61Y ADMITTED: 08/17/2016 ROOM: ED11 CHIEF COMPLAINT: Abdominal pains. HISTORY OF PRESENT ILLNESS: This is a 61-year-old male status post right hemicolectomy laparoscopically done by Dr. Spann about 2 weeks ago. This was done for an ulceration of the area of the transverse colon. He was discharged 6 days postop only to come back the next day for severe abdominal pain and evidence of ileus and air fluid levels on CAT scan. There is no evidence of obstruction of the anastomosis on a Gastrografin enema. The patient did improve and discharged about 3 days ago. Last night he complained of severe pains especially with bowel movement and passage of flatus. He denies any nausea or vomiting. He had an obstruction series of the abdomen done in the ER today which showed postoperative ileus, no evidence of definite mechanical obstruction. REVIEW OF SYSTEMS: As in HPI. The patient claims when there is a buildup of gas in the abdomen, he would complain of pains in the pelvic area and then when he passed gas or flatus he would have severe pains and then relief after passage of flatus. Also prior to bowel movement he would have severe pains and get relief after a bowel movement. He did have 3 bowel movements today, but they were quite soft. He feels that he needs some pain medications and unable to tolerate p.o. fluids at this time. ALLERGIES: None known. PAST HISTORY: History of right arm and right ankle surgery. SOCIAL HISTORY: He used to drink heavily until about 10 years ago when he stopped but only to drink again 5 years ago when his mother and again stopped drinking 6 months ago. He denies tobacco use or drug use. He claims he has taken about 5 Percocet since last discharge. PHYSICAL EXAMINATION: GENERAL: A well-developed, well-nourished, male, alert and oriented. Appears to have abdominal discomfort. HEENT: Neck is supple. LUNGS: Clear. HEART: Regular sinus rhythm. ABDOMEN: Mildly distended but soft and mild tenderness around the area of the incision just above the umbilicus. RECTAL: Exam was performed and no stool noted in the rectal vault but there was a firm nodule around the area of the anal site. He claims he has this for a long time. EXTREMITIES: Show no edema. IMPRESSION: Postoperative ileus. His white count is slightly elevated. PLAN: We will start him on IV fluids and repeat his white count in the morning as well as electrolytes. At this time we can hold off putting an NG tube since he said he was passing gas and has a bowel movement and no nausea. We will give him some Toradol for pain and hydrate him well. DICTATING PHYSICIAN: SIVA KNUTSON M.D. [id number] PHY#: [id number] ID: [id number] JOB#: [id number] ACCT: [id number] cc:SIVA KNUTSON M.D. >
[2016-08-17] MEDS ORDERED: LORAZEPAM INJ 2 MG/1 ML VIAL IV PRN (21:40)
[2016-08-17] MEDS: NORMAL SALINE 1000 ML 1,000 ML IV PRN (22:14)
[2016-08-18] MEDS: KETOROLAC TROMETHAMINE INJ/PF 30 MG/1 ML SDV IV PRN ×2 (04:52→15:30)
[2016-08-18 07:22] LABS: HEMATOCRIT 35.3 % (37.9-51.0); HGB HCT DIFFERENCE 0.1; MEAN CORPUSCULAR HEMOGLOBIN 29.7 pg (27.0-33.4); MEAN CORPUSCULAR HGB CONC 33.4 g/dL (32.0-36.0); MEAN CORPUSCULAR VOLUME 89 fl (80-97); RED BLOOD COUNT 3.96 10^6/uL (4.35-5.55); RED CELL DISTRIBUTION WIDTH 13.5 % (11.5-14.0); WHITE BLOOD COUNT 11.4 10^3/uL (4.0-10.5)
[2016-08-18 07:23] LABS: HEMOGLOBIN 11.8 g/dL (13.5-17.0)
[2016-08-18 07:41] LABS: ANION GAP 13 (5-19); BLOOD UREA NITROGEN 11 mg/dL (7-20); CALCIUM 7.8 mg/dL (8.4-10.2); CARBON DIOXIDE 26 mmol/L (22-30); CHLORIDE 103 mmol/L (98-107); CREATININE RESULT 0.57 mg/dL (0.52-1.25); GLUCOSE 94 mg/dL (75-110); SODIUM 141.5 mmol/L (137-145)
[2016-08-18] MEDS ORDERED: POTASSI CL 20 MEQ/50 ML RIDER 50 ML IV SCH (08:45)
[2016-08-18] MEDS ORDERED: POTASSIUM CHLORIDE 20 MEQ/50 ML RTU IV SCH (08:45)
--- NOTE | 2016-08-18 11:54 | PROGRESS NOTE E ---
Progress Note NAME: CLINT AMATO : 1955 AGE: 61Y DATE: 08/18/2016 ROOM: 535 SUBJECTIVE: The patient had abdominal x-rays done which still showed some gas in the area of the stomach and small bowel. However, after the abdominal x-rays the patient passed a lot of flatus and had a bowel movement and he claims he is hungry. OBJECTIVE: His abdomen is less distended, soft, and positive bowel sounds. PLAN: We will start him on clear liquids and correct his potassium which was 3.0 this morning. DICTATING PHYSICIAN: SIVA KNUTSON M.D. [id number] PHY#: [id number] ID: [id number] JOB#: [id number] ACCT: [id number] cc: >
[2016-08-18] MEDS: POTASSIUM CHLORIDE 10 MEQ TABLET.SA PO SCH ×2 (12:56→21:37)
[2016-08-19] MEDS: KETOROLAC TROMETHAMINE INJ/PF 30 MG/1 ML SDV IV PRN ×2 (00:27→20:43)
[2016-08-19] MEDS: NORMAL SALINE 1000 ML 1,000 ML IV PRN (00:27)
--- NOTE | 2016-08-19 08:09 | PDOC PROGRESS REPORT ---
Subjective Progress Note for:: 08/19/16 Subjective:: Patient states he is feeling better; he had one episode of painless light. He denies nausea or vomiting. He is having bowel function. He tolerated clear liquids. He remains intermittently anxious. Physical Exam Vital Signs: Temp Pulse Resp BP Pulse Ox 97.9 F 85 16 146/84 H 96 08/18/16 16:19 08/18/16 16:19 08/18/16 16:19 08/18/16 16:19 08/18/16 16:19 Intake & Output 08/18/16 08/19/16 08/20/16 06:59 06:59 06:59 Intake Total 0 2004 Output Total 5 Balance 0 1999 Weight 72.5 kg General appearance: PRESENT: no acute distress GI/Abdominal exam: PRESENT: other - Incision well healed. No abdominal pain. Minimal abdominal distention. Results Laboratory Results: 08/18/16 06:29 08/18/16 06:29 08/18/16 06:29 Magnesium 1.9 Impressions: Chest X-Ray 08/17/16 00:00 IMPRESSION: COPD. NO ACUTE RADIOGRAPHIC FINDING IN THE CHEST. Abdomen X-Ray 08/18/16 08:00 IMPRESSION: NO CHANGE IN APPEARANCE OF THE ABDOMEN. FINDINGS MOST SUGGESTIVE OF ILEUS. Assessment & Plan - Diagnosis (1) Ileus, postoperative Is this a current diagnosis for this admission?: YesPlan: 1. Clinically improved, making progress. 2. We'll check potassium level this morning and treat accordingly. 3. We'll check abdominal films to assess gas bowel pattern. 4. Keep on clear liquids for now.
[2016-08-19 10:08] LABS: ANION GAP 12 (5-19); BLOOD UREA NITROGEN 9 mg/dL (7-20); CARBON DIOXIDE 26 mmol/L (22-30); CHLORIDE 103 mmol/L (98-107); CREATININE RESULT 0.45 mg/dL (0.52-1.25); GLUCOSE 116 mg/dL (75-110); POTASSIUM 3.1 mmol/L (3.6-5.0); SODIUM 141.4 mmol/L (137-145)
[2016-08-19] MEDS: POTASSIUM CHLORIDE 10 MEQ TABLET.SA PO SCH ×2 (10:08→21:07)
[2016-08-19] MEDS ORDERED: ALBUTEROL SULFATE HFA (90 MCG/PUFF) 200 PUFF/8.5 GM MDI IH ONE (16:50)
[2016-08-19] MEDS: POTASSIUM CHLORIDE 20 MEQ/15 ML UDCUP PO SCH (17:33)
[2016-08-20] MEDS: ALBUTEROL SULFATE HFA (90 MCG/PUFF) 200 PUFF/8.5 GM MDI IH PRN ×2 (03:09→12:51)
[2016-08-20] MEDS: POTASSIUM CHLORIDE 20 MEQ/15 ML UDCUP PO SCH ×2 (05:59→17:52)
[2016-08-20 09:13] LABS: ANION GAP 11 (5-19); BLOOD UREA NITROGEN 6 mg/dL (7-20); CALCIUM 8.1 mg/dL (8.4-10.2); CARBON DIOXIDE 28 mmol/L (22-30); CHLORIDE 103 mmol/L (98-107); CREATININE RESULT 0.56 mg/dL (0.52-1.25); GLUCOSE 114 mg/dL (75-110); POTASSIUM 3.5 mmol/L (3.6-5.0); SODIUM 141.6 mmol/L (137-145)
[2016-08-20] MEDS: POTASSIUM CHLORIDE 10 MEQ TABLET.SA PO SCH ×2 (09:25→21:14)
--- NOTE | 2016-08-20 11:20 | PDOC PROGRESS REPORT ---
Subjective Progress Note for:: 08/20/16 Subjective:: Patient having lots of diarrhea. No nausea or vomiting; minimal pain Physical Exam Vital Signs: Temp Pulse Resp BP Pulse Ox 97.5 F 79 16 137/78 H 98 08/19/16 23:48 08/19/16 23:48 08/19/16 23:48 08/19/16 23:48 08/19/16 23:48 Intake & Output 08/19/16 08/20/16 08/21/16 06:59 06:59 06:59 Intake Total 2004 4110 Output Total Balance 1999 4110 General appearance: PRESENT: no acute distress GI/Abdominal exam: PRESENT: other - Minimal tenderness, minimal distention, incisions are healing satisfactorily Results Laboratory Results: 08/18/16 06:29 08/20/16 08:38 08/20/16 08:38 Sodium 141.6 Potassium 3.5 L Chloride 103 Carbon Dioxide 28 Anion Gap 11 BUN 6 L Creatinine 0.56 Est GFR ( Amer) > 60 Est GFR (Non-Af Amer) > 60 Glucose 114 H Calcium 8.1 L Impressions: Chest X-Ray 08/17/16 00:00 IMPRESSION: COPD. NO ACUTE RADIOGRAPHIC FINDING IN THE CHEST. Abdomen X-Ray 08/19/16 08:06 IMPRESSION: IMPROVEMENT IN THE SMALL BOWEL DILATION. Assessment & Plan - Diagnosis (1) Ileus, postoperative Is this a current diagnosis for this admission?: YesPlan: 1. Ileus resolved clinically, patient tolerating clear liquid diet. We'll keep on clear liquids and IV fluids today (2) C. difficile diarrhea Plan: 1. Diagnose this morning. We'll continue fluid hydration, and initiate by mouth vancomycin; paining medical support from hospitalist service (3) Hypokalemia Is this a current diagnosis for this admission?: YesPlan: Potassium being replenished by oral supplementation. Will check electrolytes tonight again
[2016-08-20] MEDS: KETOROLAC TROMETHAMINE INJ/PF 30 MG/1 ML SDV IV PRN ×2 (11:46→20:19)
[2016-08-20] MEDS ORDERED: ALBUTEROL SULFATE HFA (90 MCG/PUFF) 8 GM MDI (1 MDI/ER DISP) IH PRN (11:57)
[2016-08-20] MEDS: METRONIDAZOLE 500 MG TABLET PO SCH ×3 (12:50→23:50)
[2016-08-20] MEDS: VANCOMYCIN HCL INJ 500 MG VIAL PO SCH ×3 (12:51→23:50)
[2016-08-20] MEDS: LORAZEPAM INJ 2 MG/1 ML VIAL IV PRN ×2 (12:58→20:19)
[2016-08-20] MEDS ORDERED: NORMAL SALINE 1000 ML 1,000 ML IV PRN (15:50)
[2016-08-20] MEDS ORDERED: SIMETHICONE 80 MG TAB.CHEW PO PRN ×2 (15:50→15:53)
--- NOTE | 2016-08-20 16:16 | PDOC CONSULTATION ---
Consultation Consult Date: 08/20/16 Attending physician:: WALTER NORIEGA Consult reason:: C. difficile History of Present Illness Admission Date/PCP: 08/17/16 18:41 ALEX EMERSON MD History of Present Illness: CLINT AMATO JR is a 61 year old male with past medical history of hypertension , hyperlipidemia, COPD, anxiety presented to the emergency department several days ago with complaints of abdominal pain. Patient was hospitalized recently in the end of July for a hemicolectomy with subsequent postoperative ileus. Patient was initially diagnosed with an ileus here in the emergency department however has subsequently began having diarrhea and found to have C. difficile. Patient had been episode of stool every hour last evening. Today, patient reports he's feeling much improved. He denies any nausea or vomiting currently. Past Medical History Cardiac Medical History: Reports: Hyperlipidema, Hypertension Denies: Atrial Fibrillation, Congestive Heart Failure, Coronary Artery Disease, Myocardial Infarction, Peripheral Vascular Disease, Pulmonary Embolism , Heart Murmur Pulmonary Medical History: Reports: Asthma, Bronchitis, Chronic Obstructive Pulmonary Disease (COPD) Denies: Pneumonia, Respiratory Failure, Sleep Apnea, Tuberculosis Neurological Medical History: Denies: Seizures Endocrine Medical History: Reports: Diabetes Mellitus Type 2 - ? states told may be borderline need to watch diet Malignancy Medical History: Denies: Lung Cancer GI Medical History: Denies: Crohn's Disease, Gastroesophageal Reflux Disease, Hiatal Hernia Musculoskeltal Medical History: Reports: Arthritis - hands Denies: Fibromyalgia Psychiatric Medical History: Reports: Depression Hematology: Denies: Anemia Past Surgical History Past Surgical History: Reports: Orthopedic Surgery - rt hand and ankle, Other - Colectomy Denies: Appendectomy, Cholecystectomy, Colostomy, Coronary Artery Bypass Graft, Gastric Bypass Surgery, Herniorrhaphy, Pacemaker, Tonsillectomy Social History Smoking Status: Never Smoker Frequency of Alcohol Use: None - Reports he has stopped Hx Recreational Drug Use: No Drugs: Marijuana Hx Prescription Drug Abuse: No - Advance Directive Resuscitation Status: Full Code Surrogate healthcare decision maker:: Family History Family History: Arthritis, CAD, DM, Hyperlipidemia, Hypertension, Malignancy Parental Family History Reviewed: Yes Children Family History Reviewed: Yes Sibling(s) Family History Reviewed.: Yes Medication/Allergy Home Medications: Albuterol Sulfate [Proair HFA] 1 puff IH Q4HP PRN 08/17/16 Lisinopril/Hydrochlorothiazide [Zestoretic 20-12.5 mg Tablet] 1 tab PO DAILY 04/23 Simvastatin [Zocor 10 mg Tablet] 10 mg PO QHS 08/17/16 Allergies/Adverse Reactions: No Known Allergies Allergy (Verified 08/17/16 12:48) Review of Systems Constitutional: PRESENT: fever(s), weakness, weight loss. ABSENT: chills, headache(s), weight gain Eyes: ABSENT: visual disturbances Ears: ABSENT: hearing changes Cardiovascular: ABSENT: chest pain, dyspnea on exertion, edema, orthropnea, palpitations Respiratory: ABSENT: cough, hemoptysis Gastrointestinal: PRESENT: abdominal pain, bloating, diarrhea, nausea, vomiting. ABSENT: constipation, hematemesis, hematochezia, melena Genitourinary: ABSENT: dysuria, hematuria Musculoskeletal: ABSENT: joint swelling Integumentary: ABSENT: rash, wounds Neurological: ABSENT: abnormal gait, abnormal speech, confusion, dizziness, focal weakness, syncope Psychiatric: ABSENT: anxiety, depression, homidical ideation, suicidal ideation Endocrine: ABSENT: cold intolerance, heat intolerance, polydipsia, polyuria Hematologic/Lymphatic: ABSENT: easy bleeding, easy bruising Physical Exam Vital Signs: Temp Pulse Resp BP Pulse Ox 97.3 F 74 18 147/88 H 100 08/20/16 11:47 08/20/16 11:47 08/20/16 11:47 08/20/16 11:47 08/20/16 11:47 Intake & Output 08/19/16 08/20/16 08/21/16 06:59 06:59 06:59 Intake Total 2004 4110 Output Total Balance 1999 4110 General appearance: PRESENT: no acute distress, well-developed, well-nourished Head exam: PRESENT: atraumatic, normocephalic Eye exam: PRESENT: conjunctiva pink, EOMI, PERRLA. ABSENT: scleral icterus Ear exam: PRESENT: normal external ear exam Mouth exam: PRESENT: moist, tongue midline Neck exam: ABSENT: JVD, lymphadenopathy, thyromegaly, tracheal deviation Respiratory exam: PRESENT: clear to auscultation ralph, prolonged expiratory phas , symmetrical, unlabored. ABSENT: rales, rhonchi, tachypnea, wheezes Cardiovascular exam: PRESENT: RRR, +S1, +S2. ABSENT: diastolic murmur, rubs, systolic murmur Pulses: PRESENT: normal dorsalis pedis pul Vascular exam: PRESENT: normal capillary refill GI/Abdominal exam: PRESENT: distended, hyperactive bowel sounds, soft. ABSENT: firm, guarding, hernia, mass, Ro's sign, normal bowel sounds, organolmegaly , rebound, rigid, tenderness Rectal exam: PRESENT: deferred Extremities exam: PRESENT: full ROM. ABSENT: calf tenderness, clubbing, pedal edema Neurological exam: PRESENT: alert, awake, oriented to person, oriented to place , oriented to time, oriented to situation, CN II-XII grossly intact. ABSENT: motor sensory deficit Psychiatric exam: PRESENT: anxious, appropriate affect. ABSENT: homicidal ideation, suicidal ideation Skin exam: PRESENT: dry, intact, warm. ABSENT: cyanosis, rash Results Laboratory Results: 08/18/16 06:29 08/20/16 08:38 08/20/16 08:38 Sodium 141.6 Potassium 3.5 L Chloride 103 Carbon Dioxide 28 Anion Gap 11 BUN 6 L Creatinine 0.56 Est GFR ( Amer) > 60 Est GFR (Non-Af Amer) > 60 Glucose 114 H Calcium 8.1 L Impressions: Chest X-Ray 08/17/16 00:00 IMPRESSION: COPD. NO ACUTE RADIOGRAPHIC FINDING IN THE CHEST. Abdomen X-Ray 08/19/16 08:06 IMPRESSION: IMPROVEMENT IN THE SMALL BOWEL DILATION. Assessment & Plan - Diagnosis (1) C. difficile diarrhea Is this a current diagnosis for this admission?: YesPlan: Initiate patient on Flagyl 500 mg by mouth 3 times a day and Vancocin 225 mg by mouth every 6. Patient will need a total of 14 days of antibiotic therapy. (2) Hypokalemia Is this a current diagnosis for this admission?: YesPlan: Replete and check magnesium. (3) Ileus, postoperative Is this a current diagnosis for this admission?: YesPlan: Defer to surgical primary team all intra-abdominal complications diagnoses. (4) Hypertension Qualifiers: Hypertension type: essential hypertension Qualified Code(s): I10 - Essential (primary) hypertension Is this a current diagnosis for this admission?: YesPlan: Will resume patient's lisinopril. (5) S/P right colectomy Is this a current diagnosis for this admission?: Yes (6) Anxiety Is this a current diagnosis for this admission?: YesPlan: Ativan when necessary - Time Time Spent: 30 to 50 Minutes Medications reviewed and adjusted accordingly: Yes Anticipated discharge: Home
[2016-08-20] MEDS: LACTOBACILLUS ACIDOPHILUS 250 MG TAB PO SCH (17:51)
[2016-08-20 18:26] LABS: ANION GAP 12 (5-19); BLOOD UREA NITROGEN 5 mg/dL (7-20); CALCIUM 8.1 mg/dL (8.4-10.2); CARBON DIOXIDE 25 mmol/L (22-30); CHLORIDE 103 mmol/L (98-107); CREATININE RESULT 0.43 mg/dL (0.52-1.25); GLUCOSE 158 mg/dL (75-110); POTASSIUM 3.5 mmol/L (3.6-5.0); SODIUM 139.5 mmol/L (137-145)
[2016-08-20] MEDS: LISINOPRIL 10 MG TABLET PO SCH (21:13)
[2016-08-20] MEDS ORDERED: CLOPIDOGREL BISULFATE 300 MG TABLET ONE (23:26)
[2016-08-21 05:06] LABS: ABSOLUTE EOSINOPHILS # (AUTO) 0.1 10^3/uL (0.0-0.6); ABSOLUTE LYMPHOCYTES (AUTO) 0.7 10^3/uL (0.5-4.7); ABSOLUTE MONOCYTES (AUTO) 0.4 10^3/uL (0.1-1.4); ABSOLUTE NEUT (AUTO) 10.1 10^3/uL (1.7-8.2); BASOPHILS % (AUTO) 0.3 % (0-2); EOSINOPHILS % (AUTO) 0.7 % (0-6); HEMOGLOBIN 12.2 g/dL (13.5-17.0); HGB HCT DIFFERENCE 0.6; LYMPHOCYTES % (AUTO) 6.5 % (13-45); MEAN CORPUSCULAR HEMOGLOBIN 29.9 pg (27.0-33.4); MEAN CORPUSCULAR HGB CONC 33.9 g/dL (32.0-36.0); MEAN CORPUSCULAR VOLUME 88 fl (80-97); MONOCYTES % (AUTO) 3.9 % (3-13); RED BLOOD COUNT 4.07 10^6/uL (4.35-5.55); RED CELL DISTRIBUTION WIDTH 13.1 % (11.5-14.0); SEGMENTED NEUTROPHILS % (AUTO) 88.6 % (42-78); WHITE BLOOD COUNT 11.4 10^3/uL (4.0-10.5)
[2016-08-21] MEDS: POTASSIUM CHLORIDE 20 MEQ/15 ML UDCUP PO SCH (05:22)
[2016-08-21] MEDS: METRONIDAZOLE 500 MG TABLET PO SCH ×3 (05:22→17:26)
[2016-08-21] MEDS: VANCOMYCIN HCL INJ 500 MG VIAL PO SCH ×3 (05:22→17:26)
[2016-08-21 05:31] LABS: ANION GAP 11 (5-19); BLOOD UREA NITROGEN 5 mg/dL (7-20); CALCIUM 8.4 mg/dL (8.4-10.2); CARBON DIOXIDE 26 mmol/L (22-30); CHLORIDE 104 mmol/L (98-107); CREATININE RESULT 0.55 mg/dL (0.52-1.25); GLUCOSE 97 mg/dL (75-110); MAGNESIUM 1.8 mg/dL (1.6-2.3); POTASSIUM 4.3 mmol/L (3.6-5.0); SODIUM 140.8 mmol/L (137-145)
[2016-08-21] MEDS ORDERED: MAGNESIUM SULFATE/D5W 100 ML IV ONE (08:04)
[2016-08-21] MEDS: LISINOPRIL 10 MG TABLET PO SCH ×2 (09:43→21:07)
[2016-08-21] MEDS: LORAZEPAM INJ 2 MG/1 ML VIAL IV PRN ×2 (09:43→17:27)
[2016-08-21] MEDS: LACTOBACILLUS ACIDOPHILUS 250 MG TAB PO SCH ×2 (09:43→17:26)
[2016-08-21] MEDS ORDERED: POTASSIUM CHLORIDE 10 MEQ TABLET.SA PO SCH (10:00)
--- NOTE | 2016-08-21 10:30 | PDOC PROGRESS REPORT ---
Subjective Progress Note for:: 08/21/16 Subjective:: Patient feels better. He is taking his oral antibiotics as prescribed. His bowel movement Frequency is less. Physical Exam Vital Signs: Temp Pulse Resp BP Pulse Ox 97.8 F 84 16 138/85 H 99 08/20/16 20:09 08/21/16 08:11 08/21/16 08:11 08/21/16 08:11 08/21/16 08:11 Intake & Output 08/20/16 08/21/16 08/22/16 06:59 06:59 06:59 Intake Total 4110 3878 Balance 4110 3878 General appearance: PRESENT: no acute distress GI/Abdominal exam: PRESENT: other - Abdomen soft nontender incisions healing satisfactorily Results Laboratory Results: 08/21/16 04:23 08/21/16 04:23 08/20/16 08/21/16 08/21/16 18:01 04:23 04:23 WBC 11.4 H RBC 4.07 L Hgb 12.2 L Hct 36.0 L MCV 88 MCH 29.9 MCHC 33.9 RDW 13.1 Plt Count 247 Seg Neutrophils % 88.6 H Lymphocytes % 6.5 L Monocytes % 3.9 Eosinophils % 0.7 Basophils % 0.3 Absolute Neutrophils 10.1 H Absolute Lymphocytes 0.7 Absolute Monocytes 0.4 Absolute Eosinophils 0.1 Absolute Basophils 0.0 Sodium 139.5 140.8 Potassium 3.5 L 4.3 Chloride 103 104 Carbon Dioxide 25 26 Anion Gap 12 11 BUN 5 L 5 L Creatinine 0.43 L 0.55 Est GFR ( Amer) > 60 > 60 Est GFR (Non-Af Amer) > 60 > 60 Glucose 158 H 97 Calcium 8.1 L 8.4 Magnesium 1.8 Impressions: Chest X-Ray 08/17/16 00:00 IMPRESSION: COPD. NO ACUTE RADIOGRAPHIC FINDING IN THE CHEST. Abdomen X-Ray 08/19/16 08:06 IMPRESSION: IMPROVEMENT IN THE SMALL BOWEL DILATION. Assessment & Plan - Diagnosis (1) Ileus, postoperative Is this a current diagnosis for this admission?: YesPlan: 1. Clinically improved. Moving. Will advance diet slowly. Reassurance provided (2) C. difficile diarrhea Is this a current diagnosis for this admission?: YesPlan: Currently being treated with dual by mouth antimicrobial therapy. Symptoms improved. Anticipate discharge home on Flagyl within the next 24-48 hours. (3) Hypokalemia Is this a current diagnosis for this admission?: Yes
--- NOTE | 2016-08-21 16:32 | PDOC PROGRESS REPORT ---
Subjective Progress Note for:: 08/21/16 Subjective:: Patient reports his diarrhea is improving. Patient denies chest pain, shortness of breath, abdominal pain, nausea, vomiting , fevers, chills, constipation, headache, new onset weakness. Physical Exam Vital Signs: Temp Pulse Resp BP Pulse Ox 97.8 F 87 18 144/82 H 98 08/21/16 15:46 08/21/16 15:46 08/21/16 15:46 08/21/16 15:46 08/21/16 15:46 Intake & Output 08/20/16 08/21/16 08/22/16 06:59 06:59 06:59 Intake Total 4110 3878 Balance 4110 3878 Exam: General: Awake alert and oriented x3, no acute respiratory distress HEENT: AT/NC, PERRL, EOMI, oropharynx is moist, pink, no scleral icterus, no conjunctival injection Neck: No JVD, trachea midline Chest: Clear to auscultation bilaterally, no wheezes rhonchi or rales CV: Regular rate and rhythm, normal S1 and S2, no murmur, rub, or gallop Abdomen: Soft, nontender to palpation, nondistended, active bowel sounds; no rebound, rigidity, or guarding Extremities: No cyanosis, clubbing or edema Neuro: Cranial nerves II through XII are grossly intact without focal deficits; awake alert and oriented x3 Psych: Normal mood and affect Results Laboratory Results: 08/21/16 04:23 08/21/16 04:23 08/20/16 08/21/16 08/21/16 18:01 04:23 04:23 WBC 11.4 H RBC 4.07 L Hgb 12.2 L Hct 36.0 L MCV 88 MCH 29.9 MCHC 33.9 RDW 13.1 Plt Count 247 Seg Neutrophils % 88.6 H Lymphocytes % 6.5 L Monocytes % 3.9 Eosinophils % 0.7 Basophils % 0.3 Absolute Neutrophils 10.1 H Absolute Lymphocytes 0.7 Absolute Monocytes 0.4 Absolute Eosinophils 0.1 Absolute Basophils 0.0 Sodium 139.5 140.8 Potassium 3.5 L 4.3 Chloride 103 104 Carbon Dioxide 25 26 Anion Gap 12 11 BUN 5 L 5 L Creatinine 0.43 L 0.55 Est GFR ( Amer) > 60 > 60 Est GFR (Non-Af Amer) > 60 > 60 Glucose 158 H 97 Calcium 8.1 L 8.4 Magnesium 1.8 Impressions: Chest X-Ray 08/17/16 00:00 IMPRESSION: COPD. NO ACUTE RADIOGRAPHIC FINDING IN THE CHEST. Abdomen X-Ray 08/19/16 08:06 IMPRESSION: IMPROVEMENT IN THE SMALL BOWEL DILATION. Assessment & Plan - Diagnosis (1) C. difficile diarrhea Is this a current diagnosis for this admission?: YesPlan: Initiate patient on Flagyl 500 mg by mouth 3 times a day and Vancocin 250 mg by mouth every 6. Patient currently on day 2 of 14 of therapy. Patient will need a total of 14 days of antibiotic therapy. (2) Hypokalemia Is this a current diagnosis for this admission?: YesPlan: Repleted and check magnesium. (3) Ileus, postoperative Is this a current diagnosis for this admission?: YesPlan: Defer to surgical primary team all intra-abdominal complications diagnoses. (4) Hypertension Qualifiers: Hypertension type: essential hypertension Qualified Code(s): I10 - Essential (primary) hypertension Is this a current diagnosis for this admission?: YesPlan: Improved control with lisinopril (5) S/P right colectomy Is this a current diagnosis for this admission?: Yes (6) Anxiety Is this a current diagnosis for this admission?: YesPlan: Ativan when necessary - Plan Summary Plan Summary: At this time, agree on current therapy. Patient will require total of 14 days of Flagyl therapy. Medicine team will sign off and is available for reconsultation.
[2016-08-21] MEDS: KETOROLAC TROMETHAMINE INJ/PF 30 MG/1 ML SDV IV PRN (17:27)
[2016-08-22] MEDS: METRONIDAZOLE 500 MG TABLET PO SCH ×3 (01:18→11:58)
[2016-08-22] MEDS ORDERED: LORAZEPAM 0.5 MG TABLET PO PRN (01:52)
[2016-08-22] MEDS ORDERED: KETOROLAC TROMETHAMINE 10 MG TABLET PO PRN (01:52)
[2016-08-22] MEDS ORDERED: VANCOMYCIN HCL INJ 500 MG VIAL ONE ×2 (01:59→04:42)
[2016-08-22] MEDS: VANCOMYCIN HCL INJ 500 MG VIAL PO SCH ×3 (02:08→11:57)
--- NOTE | 2016-08-22 09:39 | DISCHARGE SUMMARY E ---
Discharge Summary NAME: CLINT AMATO : 1955 AGE: 61Y ADMITTED: 08/17/2016 DISCHARGED: 08/22/2016 FINAL DIAGNOSES: 1. Postop ileus. 2. C. difficile infection. HOSPITAL COURSE: He had a laparoscopic colon resection by Dr. Spann about 2-1/2 weeks ago. He was readmitted a week later and discharged and then readmitted for the second time on 08/18/2016. He was noted to have a positive C. difficile. He was then started on Flagyl. He feels 100% better this morning. No pains. Abdomen is flat, soft. Positive BM. No nausea or vomiting. DISCHARGE INSTRUCTIONS: He will be discharged on p.o. Flagyl 500 mg p.o. t.i.d. for at least 10 days to be followed up by Dr. Spann' office in 2 weeks. DICTATING PHYSICIAN: SIVA KNUTSON M.D. [id number] Y#: [id number] ID: [id number] JOB#: [id number] ACCT: [id number] cc:SIVA KNUTSON M.D. [facility],
[2016-08-22] MEDS ORDERED: POTASSIUM CHLORIDE 10 MEQ TABLET.SA PO SCH (10:00)
[2016-08-22] MEDS: LACTOBACILLUS ACIDOPHILUS 250 MG TAB PO SCH (10:58)
[2016-08-22] MEDS: LISINOPRIL 10 MG TABLET PO SCH (10:58)
[2016-08-22 11:49] VITALS: BP 125/70
== END 2016-08-22 12:37 | disposition home or self-care (01) | DRG 394 ==
LOC: ER 12:25 → EH 18:41 → 5 21:41
PROVIDERS: ADMIT Surgery; ATTEND Surgery
DX: K91.3 Postprocedural intestinal obstruction (principal); A04.7 Enterocolitis due to Clostridium difficile; Y83.6 Removal of other organ (partial) (total) as the cause of abnormal reaction of the patient, or of later complication, without mention of misadventure at the time of the procedure; I10 Essential (primary) hypertension; E86.0 Dehydration; E78.5 Hyperlipidemia, unspecified; J44.9 Chronic obstructive pulmonary disease, unspecified; F41.9 Anxiety disorder, unspecified; E11.9 Type 2 diabetes mellitus without complications; M13.842 Other specified arthritis, left hand; M13.841 Other specified arthritis, right hand; F32.9 Major depressive disorder, single episode, unspecified; E87.6 Hypokalemia; Z90.49 Acquired absence of other specified parts of digestive tract; Z79.899 Other long term (current) drug therapy; Z82.61 Family history of arthritis; Z82.49 Family history of ischemic heart disease and other diseases of the circulatory system; Z83.3 Family history of diabetes mellitus; Z80.9 Family history of malignant neoplasm, unspecified
CPT/HCPCS: 36415; 71010; 74020; 80048; 80053; 81001; 83690; 83735; 84484; 85025; 85027; 85610; 85730; 87493; 93005; 93010; 99291; J0500; J1885; J2060; J2270; J2765; J3370; J3475; J3480; J3490; J7030; J7040

== ENCOUNTER 2017-08-28 14:00 | Emergency (ER) | payer SELFPAY ==
[2017-08-28] MEDS ORDERED: NORMAL SALINE 1000 ML 1,000 ML IV ONE (15:31)
--- NOTE | 2017-08-28 15:32 | ER Document Report ---
ED Medical Screen (RME) - General Chief Complaint: Abdominal Pain Stated Complaint: LEFT SIDE ABDOMINAL PAIN Time Seen by Provider: 08/28/17 15:30 Notes: Patient has a history of diverticulitis as well as a benign mass being removed from his right colon. He presents today with left lower quadrant pain and blood in his stool. He states it feels similar to when he had diverticulitis in the past. TRAVEL OUTSIDE OF THE [place] IN LAST 30 DAYS: No - Related Data Allergies/Adverse Reactions: No Known Allergies Allergy (Verified 08/17/16 12:48) Past Medical History - Social History Frequency of alcohol use: Occasional Drug Abuse: Marijuana - Past Medical History Cardiac Medical History: Reports: Hx Hypercholesterolemia, Hx Hypertension Denies: Hx Atrial Fibrillation, Hx Congestive Heart Failure, Hx Coronary Artery Disease, Hx Heart Attack, Hx Peripheral Vascular Disease, Hx Pulmonary Embolism, Hx Heart Murmur Pulmonary Medical History: Reports: Hx Asthma, Hx Bronchitis, Hx COPD Denies: Hx Pneumonia, Hx Respiratory Failure, Hx Sleep Apnea, Hx Tuberculosis Neurological Medical History: Denies: Hx Cerebrovascular Accident, Hx Seizures Endocrine Medical History: Reports: Hx Diabetes Mellitus Type 2 - ? states told may be borderline need to watch diet Renal/ Medical History: Denies: Hx Peritoneal Dialysis Malignancy Medical History: Denies Hx Lung Cancer GI Medical History: Denies: Hx Crohn's Disease, Hx Gastroesophageal Reflux Disease, Hx Hiatal Hernia, Hx Irritable Bowel, Hx Liver Failure, Hx Pancreatitis , Hx Ulcer Musculoskeltal Medical History: Reports Hx Arthritis - hands, Denies Hx Fibromyalgia, Denies Hx Muscular Dystrophy, Reports Hx Musculoskeletal Deformity , Reports Hx Musculoskeletal Trauma Psychiatric Medical History: Reports: Hx Anxiety, Hx Depression Traumatic Medical History: Reports: Hx Fractures - rt foot Past Surgical History: Reports: Hx Bowel Surgery, Hx Orthopedic Surgery - rt hand and ankle, Other - Colectomy. Denies: Hx Appendectomy, Hx Cholecystectomy , Hx Colostomy, Hx Coronary Artery Bypass Graft, Hx Gastric Bypass Surgery, Hx Herniorrhaphy, Hx Pacemaker, Hx Tonsillectomy - Immunizations Hx Diphtheria, Pertussis, Tetanus Vaccination: Yes Physical Exam - Vital signs Vitals: Temp Pulse Resp BP Pulse Ox 97.8 F 79 18 124/74 95 08/28/17 14:51 08/28/17 14:51 08/28/17 14:51 08/28/17 14:51 08/28/17 14:51 Course - Vital Signs Vital signs: Temp Pulse Resp BP Pulse Ox 97.8 F 79 18 124/74 95 08/28/17 14:51 08/28/17 14:51 08/28/17 14:51 08/28/17 14:51 08/28/17 14:51
[2017-08-28] MEDS ORDERED: MORPHINE SULFATE 10 MG/ML INJ IV ONE (17:12)
[2017-08-28 17:31] LABS: ABSOLUTE EOSINOPHILS # (AUTO) 0.1 10^3/uL (0.0-0.6); ABSOLUTE LYMPHOCYTES (AUTO) 2.2 10^3/uL (0.5-4.7); ABSOLUTE MONOCYTES (AUTO) 0.6 10^3/uL (0.1-1.4); ABSOLUTE NEUT (AUTO) 4.2 10^3/uL (1.7-8.2); BASOPHILS % (AUTO) 0.5 % (0-2); EOSINOPHILS % (AUTO) 1.3 % (0-6); HEMATOCRIT 45.7 % (37.9-51.0); HEMOGLOBIN 15.5 g/dL (13.5-17.0); LYMPHOCYTES % (AUTO) 31.1 % (13-45); MEAN CORPUSCULAR HEMOGLOBIN 31.5 pg (27.0-33.4); MEAN CORPUSCULAR VOLUME 93 fl (80-97); MONOCYTES % (AUTO) 7.9 % (3-13); PLATELET COUNT 257 10^3/uL (150-450); RED BLOOD COUNT 4.93 10^6/uL (4.35-5.55); RED CELL DISTRIBUTION WIDTH 13.5 % (11.5-14.0); SEGMENTED NEUTROPHILS % (AUTO) 59.2 % (42-78); TOTAL CELLS COUNTED % (AUTO) 100 %; WHITE BLOOD COUNT 7.1 10^3/uL (4.0-10.5)
[2017-08-28 17:34] LABS: APPEARANCE,URINE CLEAR; BILIRUBIN,URINE NEGATIVE (NEGATIVE); COLOR,URINE STRAW; GLUCOSE, URINE NEGATIVE (NEGATIVE); KETONES,URINE NEGATIVE (NEGATIVE); LEUKOCYTE ESTERASE,URINE NEGATIVE (NEGATIVE); NITRITE,URINE NEGATIVE (NEGATIVE); PROTEIN,URINE NEGATIVE (NEGATIVE); URINE SPECIFIC GRAVITY 1.009; UROBILINOGEN,URINE NEGATIVE mg/dL (<2.0)
[2017-08-28 17:55] LABS: ALANINE AMINOTRANSFERASE 24 U/L (21-72); ALBUMIN 4.8 g/dL (3.5-5.0); ALKALINE PHOSPHATASE 75 U/L (38-126); ANION GAP 11 (5-19); ASPARTATE AMINO TRANSFERASE 28 U/L (17-59); BILIRUBIN,DIRECT 0.4 mg/dL (0.0-0.4); BILIRUBIN,TOTAL 0.4 mg/dL (0.2-1.3); BLOOD UREA NITROGEN 18 mg/dL (7-20); CALCIUM 9.6 mg/dL (8.4-10.2); CARBON DIOXIDE 31 mmol/L (22-30); CHLORIDE 99 mmol/L (98-107); GLUCOSE 94 mg/dL (75-110); POTASSIUM 4.7 mmol/L (3.6-5.0); SODIUM 141.1 mmol/L (137-145); TOTAL PROTEIN 7.9 g/dL (6.3-8.2)
--- NOTE | 2017-08-28 18:43 | RADIOLOGY REPORT (SQ) ---
EXAM DESCRIPTION: CT ABD/PELVIS WITH IV ONLY COMPLETED DATE/TIME: 08/28/2017 6:17 pm REASON FOR STUDY: llq pain COMPARISON: 07/08/2015 TECHNIQUE: CT scan of the abdomen and pelvis performed using helical scanning technique with dynamic intravenous contrast injection. No oral contrast. Images reviewed with lung, soft tissue, and bone windows. Reconstructed coronal and sagittal MPR images reviewed. Delayed images for evaluation of the urinary system also acquired. All images stored on PACS. All CT scanners at this facility use dose modulation, iterative reconstruction, and/or weight based d osing when appropriate to reduce radiation dose to as low as reasonably achievable (ALARA). [facility]: Dose Right [facility]: CareDose [facility]: Dose Right [facility]: Teradose 4D [facility]: Definicare CONTRAST TYPE AND DOSE: contrast/concentration: Isovue 370.00 mg/ml; Total Contrast Delivered: 86.0 ml; Total Saline Delivered: 45.0 ml RENAL FUNCTION: BUN 18 creatinine 0.88 RADIATION DOSE: CT Rad equipment meets quality standard of care and radiation dose reduction techniq ues were employed. CTDIvol: 7.2 - 9.8 mGy. DLP: 857 mGy-cm.. LIMITATIONS: None. FINDINGS: LOWER CHEST: No significant findings. No nodules or infiltrates. LIVER: Normal size. No masses. No dilated ducts. SPLEEN: Normal size. No focal lesions. PANCREAS: No masses. No significant calcifications. No adjacent inflammation or peripancreatic fluid collections. Pancreatic duct not dilated. GALLBLADDER: A single tiny gallstone is present. ADRENAL GLANDS: No significant masses or asymmetry. RIGHT KIDNEY AND URETER: No solid masses. No significant calcifications. No hydronephrosis or hyd roureter. LEFT KIDNEY AND URETER: No solid masses. No significant calcifications. No hydronephrosis or hydr oureter. AORTA AND VESSELS: No aneurysm. No dissection. Renal arteries, SMA, celiac without stenosis. RETROPERITONEUM: No retroperitoneal adenopathy, hemorrhage or masses. BOWEL AND PERITONEAL CAVITY: Descending and sigmoid diverticulosis. No acute inflammatory changes ar e seen. Radiopaque suture is associated with the right colon. APPENDIX: Not identified. PELVIS: No mass. No free fluid. Normal bladder. ABDOMINAL WALL: There are 2 small contiguous ventral hernias that contain only fat. BONES: Degenerative disc changes in the lumbar spine. No acute abnormality. OTHER: No other significant finding. IMPRESSION: 1. A tiny gallstone is present. 2. Diverticulosis coli with no acute inflammatory changes. 3. Mild lumbar degenerative disc changes. TECHNICAL DOCUMENTATION: JOB ID: [id number] Quality ID # [id number]: Final reports with documentation of one or more dose reduction techniques (e.g., Au tomated exposure control, adjustment of the mA and/or kV according to patient size, use of iterative reconstruction technique) 2010 [employer]- All Rights Reserved Reading location - IP/workstation name: [email or web address]
--- NOTE | 2017-08-28 19:08 | ER Document Report ---
ED General - General Chief Complaint: Abdominal Pain Stated Complaint: LEFT SIDE ABDOMINAL PAIN Time Seen by Provider: 08/28/17 15:30 Mode of Arrival: Ambulatory Information source: Patient Notes: This is a 62-year-old man with a history of diverticulitis, status post right hemicolectomy last year, presents with 1 week history of gradual worsening left lower quadrant pain. Patient states he has had a hemorrhoid and there has been some blood when he wipes. He states he has been eating and drinking fine. He denies any fever. He does have a history of COPD. TRAVEL OUTSIDE OF THE [place] IN LAST 30 DAYS: No - HPI Onset: Last week Onset/Duration: Gradual Quality of pain: Dull Severity: Mild Pain Level: 1 Associated symptoms: denies: Chills, Fever, Nausea, Vomiting Exacerbated by: Denies Relieved by: Denies Similar symptoms previously: Yes Recently seen / treated by doctor: No - Related Data Allergies/Adverse Reactions: No Known Allergies Allergy (Verified 08/17/16 12:48) Past Medical History - General Information source: Patient - Social History Smoking Status: Unknown if Ever Smoked Cigarette use (# per day): No Chew tobacco use (# tins/day): No Frequency of alcohol use: Occasional Drug Abuse: Marijuana Lives with: Spouse/Significant other Family History: Arthritis, CAD, DM, Hyperlipidemia, Hypertension, Malignancy Patient has suicidal ideation: No Patient has homicidal ideation: No - Past Medical History Cardiac Medical History: Reports: Hx Hypercholesterolemia, Hx Hypertension Denies: Hx Atrial Fibrillation, Hx Congestive Heart Failure, Hx Coronary Artery Disease, Hx Heart Attack, Hx Peripheral Vascular Disease, Hx Pulmonary Embolism, Hx Heart Murmur Pulmonary Medical History: Reports: Hx Asthma, Hx Bronchitis, Hx COPD Denies: Hx Pneumonia, Hx Respiratory Failure, Hx Sleep Apnea, Hx Tuberculosis Neurological Medical History: Denies: Hx Cerebrovascular Accident, Hx Seizures Endocrine Medical History: Reports: Hx Diabetes Mellitus Type 2 - ? states told may be borderline need to watch diet Renal/ Medical History: Denies: Hx Peritoneal Dialysis Malignancy Medical History: Denies Hx Lung Cancer GI Medical History: Denies: Hx Crohn's Disease, Hx Gastroesophageal Reflux Disease, Hx Hiatal Hernia, Hx Irritable Bowel, Hx Liver Failure, Hx Pancreatitis , Hx Ulcer Musculoskeltal Medical History: Reports Hx Arthritis - hands, Denies Hx Fibromyalgia, Denies Hx Muscular Dystrophy, Reports Hx Musculoskeletal Deformity , Reports Hx Musculoskeletal Trauma Psychiatric Medical History: Reports: Hx Anxiety, Hx Depression Traumatic Medical History: Reports: Hx Fractures - rt foot Past Surgical History: Reports: Hx Bowel Surgery, Hx Orthopedic Surgery - rt hand and ankle, Other - Colectomy. Denies: Hx Appendectomy, Hx Cholecystectomy , Hx Colostomy, Hx Coronary Artery Bypass Graft, Hx Gastric Bypass Surgery, Hx Herniorrhaphy, Hx Pacemaker, Hx Tonsillectomy - Immunizations Hx Diphtheria, Pertussis, Tetanus Vaccination: Yes Review of Systems - Review of Systems Constitutional: denies: Chills, Fever EENT: No symptoms reported Cardiovascular: No symptoms reported Respiratory: No symptoms reported Gastrointestinal: See HPI Genitourinary: No symptoms reported Male Genitourinary: No symptoms reported Skin: No symptoms reported Hematologic/Lymphatic: No symptoms reported Neurological/Psychological: No symptoms reported Physical Exam - Vital signs Vitals: Temp Pulse Resp BP Pulse Ox 97.8 F 79 18 124/74 95 08/28/17 14:51 08/28/17 14:51 08/28/17 14:51 08/28/17 14:51 08/28/17 14:51 Notes: Physical exam: GENERAL: 62-year-old man, alert and oriented 3, no acute distress HEAD: Atraumatic, normocephalic. EYES: Pupils equal round and reactive to light, extraocular movements intact, sclera anicteric, conjunctiva are normal. ENT: TMs normal, nares patent, oropharynx clear without exudates. Moist mucous membranes. NECK: Normal range of motion, supple without obvious mass or JVD. LUNGS: Breath sounds clear to auscultation bilaterally and equal. No wheezes rales or rhonchi. HEART: Regular rate and rhythm without murmurs, rubs or gallops. ABDOMEN: Soft, normoactive bowel sounds. Patient does have a supraumbilical abdominal wall defect without any tenderness or evidence of incarceration ( history of hernia in the past). He does have some mild tenderness in the left lower quadrant without rebound or guarding. Testes 2 nontender, no groin hernias. Rectal: Does have a external hemorrhoid with some mild gross bleeding from there. Otherwise, rectal shows no masses. EXTREMITIES: Normal range of motion, no pitting or edema. No clubbing or cyanosis. NEUROLOGICAL: Cranial nerves II through XII grossly intact. Normal speech, moving all extremities. PSYCH: Normal mood, normal affect. SKIN: Warm, Dry, normal turgor, no rashes or lesions noted. Course - Vital Signs Vital signs: Temp Pulse Resp BP Pulse Ox 98.0 F 80 16 119/78 98 08/28/17 20:44 08/28/17 20:44 08/28/17 20:44 08/28/17 20:44 08/28/17 20:44 - Laboratory Result Diagrams: 08/28/17 17:10 08/28/17 17:10 Laboratory results interpreted by me: 08/28/17 17:10 Carbon Dioxide 31 H Discharge - Discharge Clinical Impression: Diverticulitis Condition: Stable Disposition: HOME, SELF-CARE Instructions: Diverticulitis ([facility]) Additional Instructions: As we discussed, symptoms are consistent with diverticulitis. Your blood work looked okay. The CT scan showed no evidence of abscess or bowel perforation. I do want you to follow-up with Dr. Ga: Call the surgical clinic and let them know he was seen in the emergency room for reticulitis in the ER doctor wanted you seen in the next few days. Take the antibiotics as prescribed. I prescribed some Zofran for nausea Return to the emergency room for worsening pain, not tolerating fluids, vomiting or any concerns or getting worse. Prescriptions: Budesonide/Formoterol Fumarate [Symbicort 160-4.5 Mcg Inhaler] 10.2 gm IH BID # 1 hfa.aer.ad Ciprofloxacin HCl [Cipro 500 mg Tablet] 500 mg PO BID #20 tablet Metronidazole [Flagyl 500 mg Tablet] 500 mg PO TID #30 tablet Ondansetron HCl [Zofran 4 mg Tablet] 1 - 2 tab PO Q4H PRN #10 tablet PRN Reason: Referrals: WALTER NORIEGA MD [ACTIVE STAFF] - Follow up in 3-5 days
[2017-08-28] MEDS ORDERED: METRONIDAZOLE 500 MG TABLET PO ONE (20:28)
[2017-08-28] MEDS ORDERED: CIPROFLOXACIN HCL 500 MG TABLET PO ONE (20:28)
[2017-08-28 20:46] VITALS: BP 119/78
== END 2017-08-28 20:44 | disposition home or self-care (01) ==
LOC: ER 14:00
DX: K57.92 Diverticulitis of intestine, part unspecified, without perforation or abscess without bleeding (principal); K64.4 Residual hemorrhoidal skin tags; R10.32 Left lower quadrant pain; J44.9 Chronic obstructive pulmonary disease, unspecified; I10 Essential (primary) hypertension; F12.10 Cannabis abuse, uncomplicated; Z90.49 Acquired absence of other specified parts of digestive tract
CPT/HCPCS: 99284; 96361; 96374; 36415; 85025; 80053; 81001; 74177; J2270; J7030

== ENCOUNTER 2017-09-17 07:20 | Emergency (ER) | payer MEDICARE ==
--- NOTE | 2017-09-17 08:00 | ER Document Report ---
ED General - General Chief Complaint: Back Pain Stated Complaint: BACK PAIN Time Seen by Provider: 09/17/17 07:43 Mode of Arrival: Ambulatory Information source: Patient Notes: 62-year-old male history of diverticulitis presents with complaints of left lower quadrant abdominal pain. Patient notes he has been having this pain for the past week now denies any fevers or chills notes he saw some blood in the stool 3 days ago. Patient was here recently notes he took antibiotics for a week for a possible flareup. Patient denies any cauda equina concerns TRAVEL OUTSIDE OF THE [place] IN LAST 30 DAYS: No - HPI Onset: Last week Onset/Duration: Persistent Quality of pain: Sharp Severity: Mild Pain Level: 2 Associated symptoms: Body/muscle aches Exacerbated by: Movement Relieved by: Denies Similar symptoms previously: Yes Recently seen / treated by doctor: Yes - Related Data Allergies/Adverse Reactions: No Known Allergies Allergy (Verified 08/17/16 12:48) Past Medical History - Social History Smoking Status: Never Smoker Cigarette use (# per day): No Chew tobacco use (# tins/day): No Smoking Education Provided: No Family History: Arthritis, CAD, DM, Hyperlipidemia, Hypertension, Malignancy - Past Medical History Cardiac Medical History: Reports: Hx Hypercholesterolemia, Hx Hypertension Denies: Hx Atrial Fibrillation, Hx Congestive Heart Failure, Hx Coronary Artery Disease, Hx Heart Attack, Hx Peripheral Vascular Disease, Hx Pulmonary Embolism, Hx Heart Murmur Pulmonary Medical History: Reports: Hx Asthma, Hx Bronchitis, Hx COPD Denies: Hx Pneumonia, Hx Respiratory Failure, Hx Sleep Apnea, Hx Tuberculosis Neurological Medical History: Denies: Hx Cerebrovascular Accident, Hx Seizures Endocrine Medical History: Reports: Hx Diabetes Mellitus Type 2 - ? states told may be borderline need to watch diet Renal/ Medical History: Denies: Hx Peritoneal Dialysis Malignancy Medical History: Denies Hx Lung Cancer GI Medical History: Denies: Hx Crohn's Disease, Hx Gastroesophageal Reflux Disease, Hx Hiatal Hernia, Hx Irritable Bowel, Hx Liver Failure, Hx Pancreatitis , Hx Ulcer Musculoskeltal Medical History: Reports Hx Arthritis - hands, Denies Hx Fibromyalgia, Denies Hx Muscular Dystrophy, Reports Hx Musculoskeletal Deformity , Reports Hx Musculoskeletal Trauma Psychiatric Medical History: Reports: Hx Anxiety, Hx Depression Traumatic Medical History: Reports: Hx Fractures - rt foot Past Surgical History: Reports: Hx Bowel Surgery, Hx Orthopedic Surgery - rt hand and ankle, Other - Colectomy. Denies: Hx Appendectomy, Hx Cholecystectomy , Hx Colostomy, Hx Coronary Artery Bypass Graft, Hx Gastric Bypass Surgery, Hx Herniorrhaphy, Hx Pacemaker, Hx Tonsillectomy - Immunizations Hx Diphtheria, Pertussis, Tetanus Vaccination: Yes Review of Systems - Review of Systems Notes: REVIEW OF SYSTEMS: CONSTITUTIONAL : Denies fever, chills, or sweats. Denies recent illness. EENT: Denies eye, ear, throat, or mouth pain or symptoms. Denies nasal or sinus congestion or discharge. Denies throat, tongue, or mouth swelling or difficulty swallowing. CARDIOVASCULAR: Denies chest pain. Denies palpitations or racing or irregular heart beat. Denies ankle edema. RESPIRATORY: Denies cough, cold, or chest congestion. Denies shortness of breath, difficulty breathing, or wheezing. GASTROINTESTINAL: Admits to left lower quadrant abdominal pain GENITOURINARY: Denies difficulty urinating, painful urination, burning, frequency, blood in urine, or discharge. MUSCULOSKELETAL: Admits to back pain SKIN: Denies rash, lesions or sores. HEMATOLOGIC : Denies easy bruising or bleeding. LYMPHATIC: Denies swollen, enlarged glands. NEUROLOGICAL: Denies confusion or altered mental status. Denies passing out or loss of consciousness. Denies dizziness or lightheadedness. Denies headache. Denies weakness or paralysis or loss of use of either side. Denies problems with gait or speech. Denies sensory loss, numbness, or tingling. Denies seizures. PSYCHIATRIC: Denies anxiety or stress. Denies depression, suicidal ideation, or homicidal ideation. ALL OTHER SYSTEMS REVIEWED AND NEGATIVE. PHYSICAL EXAMINATION: GENERAL: Well-appearing, well-nourished and in mild distress. HEAD: Atraumatic, normocephalic. EYES: Pupils equal round and reactive to light, extraocular movements intact, conjunctiva are normal. ENT: Nares patent, oropharynx clear without exudates. Moist mucous membranes. NECK: Normal range of motion, supple without lymphadenopathy LUNGS: Breath sounds clear to auscultation bilaterally and equal. No wheezes rales or rhonchi. HEART: Regular rate and rhythm without murmurs ABDOMEN: Soft, minimally tender left lower quadrant no rebound or guarding Female : deferred Musculoskeletal: Normal range of motion, no pitting or edema. No cyanosis. NEUROLOGICAL: Cranial nerves grossly intact. Normal speech, normal gait. Normal sensory, motor exams PSYCH: Normal mood, normal affect. SKIN: Warm, Dry, normal turgor, no rashes or lesions noted. Dictation was performed using [employer] voice recognition software Physical Exam - Vital signs Vitals: Temp Pulse Resp BP Pulse Ox 97.6 F 80 16 117/76 94 09/17/17 07:43 09/17/17 07:43 09/17/17 07:43 09/17/17 07:43 09/17/17 07:43 Course - Re-evaluation Re-evalutation: 09/17/17 08:28 Given history of previous small bowel obstructions ileus and diverticulitis do believe a CT abdomen pelvis with oral and IV contrast is appropriate, lab work pending patient will be given pain control 09/17/17 13:54 CT abdomen pelvis notes no significant abnormality, patient overall looks well is in no distress, he notes his improvement significant pain, patient is able to ambulate with no difficulties admits no neuro deficits or concerns of cauda equina, therefore I do believe patient is stable for discharge After performing a Medical Screening Examination, I estimate there is LOW risk for EXPANDING OR RUPTURED ABDOMINAL AORTIC ANEURYSM, CAUDA EQUINA SYNDROME, EPIDURAL MASS LESION, or HERNIATED DISK CAUSING SEVERE SPINAL STENOSIS, thus I consider the discharge disposition reasonable. I have reevaluated this patient multiple times and no significant life threatening changes are noted. The patient and I have discussed the diagnosis and risks, and we agree with discharging home and close follow-up. We also discussed returning to the Emergency Department immediately if new or worsening symptoms occur with the understanding that symptoms and presentations can change. We have discussed the symptoms which are most concerning (e.g., saddle anesthesia, urinary or bowel incontinence or retention, changing or worsening pain) that necessitate immediate return. - Vital Signs Vital signs: Temp Pulse Resp BP Pulse Ox 98.1 F 80 18 112/78 97 09/17/17 12:15 09/17/17 12:15 09/17/17 12:15 09/17/17 12:15 09/17/17 12:15 - Laboratory Result Diagrams: 09/17/17 09:10 09/17/17 09:10 Laboratory results interpreted by me: 09/17/17 09:10 Carbon Dioxide 33 H - Diagnostic Test Radiology reviewed: Image reviewed - CT abdomen pelvis with oral and IV contrast notes diverticulosis without any signs of diverticulitis, Reports reviewed Discharge - Discharge Clinical Impression: Back pain Qualifiers: Back pain location: low back pain Chronicity: acute Back pain laterality: left Sciatica presence: without sciatica Qualified Code(s): M54.5 - Low back pain Abdominal pain Qualifiers: Abdominal location: left lower quadrant Qualified Code(s): R10.32 - Left lower quadrant pain Condition: Stable Disposition: HOME, SELF-CARE Instructions: Low Back Pain ([facility]) Prescriptions: Oxycodone HCl/Acetaminophen [Percocet 5-325 mg Tablet] 1 - 2 tab PO Q4H PRN #15 tablet PRN Reason: Referrals: ALEX EMERSON MD [Primary Care Provider] - Follow up tomorrow
[2017-09-17] MEDS ORDERED: HYDROMORPHONE HCL INJ/PF 2 MG/ML AMPULE IV ONE (08:25)
[2017-09-17 09:31] LABS: ABSOLUTE EOSINOPHILS # (AUTO) 0.1 10^3/uL (0.0-0.6); ABSOLUTE LYMPHOCYTES (AUTO) 1.1 10^3/uL (0.5-4.7); ABSOLUTE MONOCYTES (AUTO) 0.4 10^3/uL (0.1-1.4); ABSOLUTE NEUT (AUTO) 4.1 10^3/uL (1.7-8.2); BASOPHILS % (AUTO) 0.3 % (0-2); HEMATOCRIT 45.2 % (37.9-51.0); HEMOGLOBIN 15.3 g/dL (13.5-17.0); LYMPHOCYTES % (AUTO) 18.8 % (13-45); MEAN CORPUSCULAR HGB CONC 33.9 g/dL (32.0-36.0); MEAN CORPUSCULAR VOLUME 92 fl (80-97); MONOCYTES % (AUTO) 6.6 % (3-13); PLATELET COUNT 232 10^3/uL (150-450); RED BLOOD COUNT 4.93 10^6/uL (4.35-5.55); RED CELL DISTRIBUTION WIDTH 13.4 % (11.5-14.0); SEGMENTED NEUTROPHILS % (AUTO) 73.3 % (42-78); TOTAL CELLS COUNTED % (AUTO) 100 %; WHITE BLOOD COUNT 5.6 10^3/uL (4.0-10.5)
[2017-09-17 09:46] LABS: ALANINE AMINOTRANSFERASE 25 U/L (21-72); ALBUMIN 4.5 g/dL (3.5-5.0); ALKALINE PHOSPHATASE 70 U/L (38-126); ANION GAP 10 (5-19); ASPARTATE AMINO TRANSFERASE 17 U/L (17-59); BILIRUBIN,DIRECT 0.2 mg/dL (0.0-0.4); BILIRUBIN,TOTAL 0.6 mg/dL (0.2-1.3); BLOOD UREA NITROGEN 15 mg/dL (7-20); CALCIUM 9.9 mg/dL (8.4-10.2); CARBON DIOXIDE 33 mmol/L (22-30); CHLORIDE 98 mmol/L (98-107); GLUCOSE 95 mg/dL (75-110); LIPASE 71.2 U/L (23-300); POTASSIUM 4.8 mmol/L (3.6-5.0); SODIUM 141.2 mmol/L (137-145); TOTAL PROTEIN 7.1 g/dL (6.3-8.2)
--- NOTE | 2017-09-17 11:48 | RADIOLOGY REPORT (SQ) ---
EXAM DESCRIPTION: CT ABD/PELVIS WITH IV ORAL COMPLETED DATE/TIME: 09/17/2017 11:20 am REASON FOR STUDY: LLQ , left flank pain, hx diverticulitis COMPARISON: 08/10/2016 TECHNIQUE: CT scan of the abdomen and pelvis performed with intravenous and oral contrast using sugey sunil scanning technique with dynamic intravenous contrast injection. Images reviewed with lung, soft t issue, and bone windows. Reconstructed coronal and sagittal MPR images reviewed. Delayed images for e valuation of the urinary system also acquired. All images stored on PACS. All CT scanners at this facility use dose modulation, iterative reconstruction, and/or weight based d osing when appropriate to reduce radiation dose to as low as reasonably achievable (ALARA). [facility]: Dose Right [facility]: CareDose [facility]: Dose Right [facility]: Teradose 4D [facility]: [employer] CONTRAST TYPE AND DOSE: 31 mL Isovue 370- low osmolar. RENAL FUNCTION: GFR > 60. RADIATION DOSE: . LIMITATIONS: None. FINDINGS: LOWER CHEST: No significant findings. No nodules or infiltrates. LIVER: Normal size. No masses. No dilated ducts. SPLEEN: Normal size. No focal lesions. PANCREAS: No masses. No significant calcifications. No adjacent inflammation or peripancreatic fluid collections. Pancreatic duct not dilated. GALLBLADDER: No identified stones by CT criteria. No inflammatory changes to suggest cholecystitis. ADRENAL GLANDS: No significant masses or asymmetry. RIGHT KIDNEY AND URETER: No solid masses. No significant calcifications. No hydronephrosis or hyd roureter. LEFT KIDNEY AND URETER: Stable cyst. No solid masses. No significant calcifications. No hydronep hrosis or hydroureter. AORTA AND VESSELS: No aneurysm. No dissection. Renal arteries, SMA, celiac without stenosis. RETROPERITONEUM: No retroperitoneal adenopathy, hemorrhage or masses. BOWEL AND PERITONEAL CAVITY: Diverticulosis. No obstruction. No visualized masses. No free fluid. N o inflammatory changes or thickening of bowel wall. APPENDIX: Not visualized. PELVIS: No significant masses. Normal bladder. No free fluid. ABDOMINAL WALL: No masses. Small fat containing supraumbilical hernias and tiny fat containing periu mbilical hernia. BONES: No significant or acute findings. OTHER: No other significant finding. IMPRESSION: DIVERTICULOSIS WITHOUT DIVERTICULITIS. ADDITIONAL CHRONIC CHANGES ABOVE. TECHNICAL DOCUMENTATION: JOB ID: [id number] Quality ID # [id number]: Final reports with documentation of one or more dose reduction techniques (e.g., Au tomated exposure control, adjustment of the mA and/or kV according to patient size, use of iterative reconstruction technique) 2010 [employer]- All Rights Reserved Reading location - IP/workstation name: [email or web address]
[2017-09-17 12:31] VITALS: BP 112/78
== END 2017-09-17 12:15 | disposition home or self-care (01) ==
LOC: ER 07:20
DX: R10.32 Left lower quadrant pain (principal); M54.5 Low back pain; E78.00 Pure hypercholesterolemia, unspecified; I10 Essential (primary) hypertension; J44.9 Chronic obstructive pulmonary disease, unspecified
CPT/HCPCS: 99284; 96374; 36415; 83690; 85025; 80053; 74177; J1170